=== PATIENT | female | born 1960 ===

== ENCOUNTER 2017-11-02 09:41 | Inpatient (IN) | payer BC, OTHER ==
[2017-11-02 10:00] VITALS: BMI 34.7
[2017-11-02] MEDS ORDERED: Sodium Chloride 0.9% 1,000 ML IV STA ×2 (10:26→17:42)
[2017-11-02 10:45] LABS: BASO % 0.4 % (0.0-2.0); EOS # 0.2 K/uL (0.0-0.7); EOS % 3.1 % (0.0-4.0); HEMOGLOBIN 13.8 g/dL (12.0-16.0); LYMPH # 1.5 K/uL (1.0-4.3); LYMPH % 22.7 % (20.0-40.0); MEAN CELL VOLUME 81.7 fl (81.0-99.0); MEAN CORPUSCULAR HEMOGLOBIN 27.8 pg (27.0-31.0); MEAN PLATELET VOLUME 8.5 fl (7.2-11.7); MONO # 0.7 K/uL (0.0-0.8); MONO % 10.5 % (0.0-10.0); NEUT # 4.2 K/uL (1.8-7.0); NEUT % 63.3 % (50.0-75.0); NRBC % 0.2 % (0.0-0.0); RBC 4.97 Mil/uL (3.80-5.20); RED CELL DISTRIBUTION WIDTH 13.2 % (11.5-14.5); WHITE BLOOD COUNT 6.6 K/uL (4.8-10.8)
[2017-11-02 10:59] LABS: ALB/GLOB RATIO 1.3 (1.0-2.1); ALBUMIN 4.1 g/dL (3.5-5.0); ALT/SGPT 47 U/L (9-52); AST/SGOT 27 U/L (14-36); BLOOD UREA NITROGEN 18 mg/dl (7-17); CALCIUM 8.7 mg/dL (8.4-10.2); GFR AFRICAN-AMERICAN > 60; GFR NON-AFRICAN AMERICAN > 60; LIPASE 46 U/L (23-300)
--- NOTE | 2017-11-02 11:22 | ED PDOC ---
HPI: Abdomen Time Seen by Provider: 11/02/17 10:00 Chief Complaint (Nursing): Abdominal Pain Chief Complaint (Provider): Abdominal Pain History Per: Patient History/Exam Limitations: no limitations Onset/Duration Of Symptoms: Days (x 1) Current Symptoms Are (Timing): Still Present Additional Complaint(s): 56 year old female with history of diverticulitis presents to the ED complaining of vomiting and diarrhea. Also complains of associated midepigastric pain w vomiting and diarrhea. Denies fever. PMD: Dr. Lyndon Hdz Past Medical History Reviewed: Historical Data, Nursing Documentation, Vital Signs Vital Signs: Last Vital Signs Temp 98.3 F 11/02/17 10:00 Pulse 74 11/02/17 10:00 Resp 17 11/02/17 10:00 BP 121/73 11/02/17 10:00 Pulse Ox 95 11/02/17 18:41 - Medical History PMH: Anxiety, Back Problems, Diverticulitis, HTN Denies: HIV, Chronic Kidney Disease - Surgical History Surgical History: Cholecystectomy, Endoscopy Other surgeries: hysterectomy and cholecystectomy - Family History Family History: States: Unknown Family Hx - Social History Current smoker - smoking cessation education provided: No Alcohol: None Drugs: Denies - Home Medications Home Medications: Ambulatory Orders Medication Instructions Recorded Olmesartan [BenicarNf] 40 mg PO DAILY 01/06/17 Famotidine [Pepcid] 20 mg PO DAILY 11/02/17 - Allergies Allergies/Adverse Reactions: Allergies Allergy/AdvReac Type Severity Reaction Status Date / Time Influenza Virus Vaccines Allergy Mild RASH Verified 11/02/17 10:12 hamilton AdvReac VOMITING Verified 11/02/17 10:12 kiwi AdvReac VOMITING Verified 11/02/17 10:12 Review of Systems ROS Statement: Except As Marked, All Systems Reviewed And Found Negative Constitutional: Negative for: Fever Gastrointestinal: Positive for: Vomiting, Abdominal Pain, Diarrhea Physical Exam - Reviewed Nursing Documentation Reviewed: Yes Vital Signs Reviewed: Yes - Physical Exam Appears: Positive for: Non-toxic, No Acute Distress Head Exam: Positive for: ATRAUMATIC, NORMOCEPHALIC Skin: Positive for: Normal Color, Warm, Dry Eye Exam: Positive for: EOMI, Normal appearance, PERRL ENT: Positive for: Normal ENT Inspection Neck: Positive for: Normal, Painless ROM, Supple Cardiovascular/Chest: Positive for: Regular Rate, Rhythm. Negative for: Murmur Respiratory: Positive for: Normal Breath Sounds. Negative for: Wheezing Gastrointestinal/Abdominal: Positive for: Tenderness (slight midepigastric.). Negative for: Other (LLQ tenderness) Back: Positive for: Normal Inspection Extremity: Positive for: Normal ROM Neurologic/Psych: Positive for: Alert, Oriented - Laboratory Results Result Diagrams: 11/02/17 10:40 11/02/17 10:40 - ECG O2 Sat by Pulse Oximetry: 95 (RA) Pulse Ox Interpretation: Normal Medical Decision Making Medical Decision Making: time: 10:23 Impression: abd pain -viral gastroenteritis vs gastritis Initial Plan: --Pepcid 20 mg IVP --Normal Saline IV --Zofran Inj 4 mg IV --CBC --CMP --Lipase Time: 12:45 --Patient is still experiencing pain and will get a Ct scan to rule out diverticulitis ____ Time: 1649 --CT ABD/pelvis FINDINGS: LOWER THORAX: Unremarkable. LIVER: Hepatomegaly, hepatic steatosis. GALLBLADDER AND BILE DUCTS: Status post cholecystectomy. No abnormality is seen in the gallbladder fossa. PANCREAS: Unremarkable. No gross lesion or ductal dilatation. SPLEEN: Mild splenomegaly. ADRENALS: Unremarkable. No mass. KIDNEYS AND URETERS: Unremarkable. No hydronephrosis. No solid mass. VASCULATURE: Unremarkable. No aortic aneurysm. BOWEL: Disproportionate dilatation of proximal and mid small bowel relative to distal small bowel and colon suggestive earlier incomplete obstruction. Dilated loops of small bowel throughout the left hero abdomen and pelvis as well as the right hemipelvis. Diverticulosis without an acute inflammatory component or other associated pathologic process. APPENDIX: Normal appendix. PERITONEUM: Unremarkable. No free fluid. No free air. LYMPH NODES: Unremarkable. No enlarged lymph nodes. BLADDER: Unremarkable. REPRODUCTIVE: Prior hysterectomy BONES: No acute fracture. OTHER FINDINGS: None. IMPRESSION: Dilated proximal mid small bowel suggest early or incomplete small bowel obstruction. No evidence of an acute inflammatory process in the small bowel or colon. Unremarkable appendix. ___ Time: 1743 --Patient made aware of results. --Dr. Hdz accepted patient (pcp) --Patient is requesting to to have Dr Lieberman of surgery be consult- who is made aware of case. Scribe Attestation: Documented by Emma Saldivar, acting as a scribe for Rojas Sarabia MD Provider Scribe Attestation: All medical record entries made by the Scribe were at my direction and personally dictated by me. I have reviewed the chart and agree that the record accurately reflects my personal performance of the history, physical exam, medical decision making, and the department course for this patient. I have also personally directed, reviewed, and agree with the discharge instructions and disposition. Disposition - Clinical Impression Clinical Impression: Small bowel obstruction - Patient ED Disposition Is Patient to be Admitted: Yes - Disposition Disposition Time: 14:00 Condition: STABLE
[2017-11-02] MEDS ORDERED: Iohexol 240 (50 ml) PO ONE (12:50)
[2017-11-02] MEDS ORDERED: Iohexol 300 100 ML IJ ONE (16:07)
[2017-11-02] MEDS ORDERED: Sodium Chloride 0.9% 50 ML IV ONE (16:07)
--- NOTE | 2017-11-02 16:51 | CT ---
PROCEDURE: CT Abdomen and Pelvis with contrast HISTORY: Abdominal pain, diverticulitis suspected clinically COMPARISON: 01/06/2017 TECHNIQUE: Contrast dose: 95 cc Omnipaque 300 Radiation dose: Total exam DLP = 1184.53. MGy-cm. This CT exam was performed using one or more of the following dose reduction techniques: Automated exposure control, adjustment of the mA and/or kV according to patient size, and/or use of iterative reconstruction technique. FINDINGS: LOWER THORAX: Unremarkable. LIVER: Hepatomegaly, hepatic steatosis. GALLBLADDER AND BILE DUCTS: Status post cholecystectomy. No abnormality is seen in the gallbladder fossa. PANCREAS: Unremarkable. No gross lesion or ductal dilatation. SPLEEN: Mild splenomegaly. ADRENALS: Unremarkable. No mass. KIDNEYS AND URETERS: Unremarkable. No hydronephrosis. No solid mass. VASCULATURE: Unremarkable. No aortic aneurysm. BOWEL: Disproportionate dilatation of proximal and mid small bowel relative to distal small bowel and colon suggestive earlier incomplete obstruction. Dilated loops of small bowel throughout the left hero abdomen and pelvis as well as the right hemipelvis. Diverticulosis without an acute inflammatory component or other associated pathologic process. APPENDIX: Normal appendix. PERITONEUM: Unremarkable. No free fluid. No free air. LYMPH NODES: Unremarkable. No enlarged lymph nodes. BLADDER: Unremarkable. REPRODUCTIVE: Prior hysterectomy BONES: No acute fracture. OTHER FINDINGS: None. IMPRESSION: Dilated proximal mid small bowel suggest early or incomplete small bowel obstruction. No evidence of an acute inflammatory process in the small bowel or colon. Unremarkable appendix.
--- NOTE | 2017-11-02 19:12 | CP.PCM.CON ---
History of Present Illness - History of Present Illness History of Present Illness: General Surgery Consult Note for Dr. Lieberman Reason for consult: early vs partial SBO 56 F with PMH of HTN, diverticulitis, s/p total hysterectomy, s/p laparoscopic cholecystectomy presents to [facility] for complaint of abdominal pain, nausea/ vomiting, and diarrhea. Patient was evaluated in the ED. Patient states that symptoms began 1.5 days ago while she was sleeping. She was awoken by pain. She subsequently developed the nausea/vomiting and diarrhea. She had 1 episode of non-bloody, non-bilious vomiting. She also reports 3 episodes of non-bloody diarrhea. She had never had this in the past and reports sudden onset. She rates pain as severe. She describes pain as constant and cramping located in right side of abdomen without radiation. Denies any specific alleviating or exacerbating factors. Patient reports to having increased fiber intake recently. CT abdomen/pelvis was done and showed early vs incomplete SBO. Admits to recent constipation. Denies fever/chills, chest pain, SOB, palpitations, recent illness, sick contacts. PMH: HTN, diverticulitis Meds: Denies Allergy: flu vaccine, hamilton, kiwi PSH: s/p total hysterectomy, s/p laparoscopic cholecystectomy, multiple D&Cs FH: non-contributory Social: denies tobacco/illicit drug use, social Etoh on rare occasions, works in OR at [facility] [employer] Review of Systems - Review of Systems All systems: reviewed and no additional remarkable complaints except (as per HPI ) Past Patient History - Infectious Disease Hx of Infectious Diseases: None - Past Medical History & Family History Past Medical History?: Yes - Past Social History Alcohol: None Drugs: Denies - CARDIAC Hx Hypertension: Yes - PULMONARY Hx Respiratory Disorders: No - NEUROLOGICAL Hx Neurological Disorder: No - HEENT Hx HEENT Problems: No - RENAL Hx Chronic Kidney Disease: No - ENDOCRINE/METABOLIC Hx Endocrine Disorders: No - HEMATOLOGICAL/ONCOLOGICAL Hx Human Immunodeficiency Virus (HIV): No - INTEGUMENTARY Hx Dermatological Problems: No - MUSCULOSKELETAL/RHEUMATOLOGICAL Hx Back Pain: Yes Hx Falls: No - GASTROINTESTINAL Hx Diverticulitis: Yes - GENITOURINARY/GYNECOLOGICAL Hx Genitourinary Disorders: No - PSYCHIATRIC Hx Anxiety: Yes - SURGICAL HISTORY Hx Cholecystectomy: Yes - ANESTHESIA Hx Anesthesia: Yes Hx Anesthesia Reactions: No Hx Malignant Hyperthermia: No Meds Allergies/Adverse Reactions: Allergies Allergy/AdvReac Type Severity Reaction Status Date / Time Influenza Virus Vaccines Allergy Mild RASH Verified 11/02/17 10:12 hamilton AdvReac VOMITING Verified 11/02/17 10:12 kiwi AdvReac VOMITING Verified 11/02/17 10:12 - Medications Medications: Current Medications Sodium Chloride (Sodium Chloride 0.9%) 1,000 mls @ 250 mls/hr IV .Q4H STA Stop: 11/02/17 21:41 Last Admin: 11/02/17 17:57 Dose: 250 mls/hr Physical Exam - Constitutional Appears: No Acute Distress - Head Exam Head Exam: ATRAUMATIC, NORMOCEPHALIC - Eye Exam Eye Exam: EOMI, Normal appearance - ENT Exam ENT Exam: Mucous Membranes Moist - Neck Exam Neck exam: Positive for: Full Rom - Respiratory Exam Respiratory Exam: NORMAL BREATHING PATTERN - Cardiovascular Exam Cardiovascular Exam: REGULAR RHYTHM - GI/Abdominal Exam GI & Abdominal Exam: Distended, Guarding (voluntary on deep palpation), Normal Bowel Sounds, Soft, Tenderness (right sided). absent: Firm, Hernia, Rebound, Rigid Additional comments: scars from previous laparoscopy suprapubic scar from hysterectomy - Extremities Exam Extremities exam: Positive for: normal capillary refill, pedal pulses present. Negative for: calf tenderness - Back Exam Back exam: absent: CVA tenderness (L), CVA tenderness (R) - Neurological Exam Neurological exam: Alert, CN II-XII Intact, Oriented x3 - Psychiatric Exam Psychiatric exam: Normal Affect, Normal Mood - Skin Skin Exam: Dry, Intact, Normal Color, Warm Results - Vital Signs Recent Vital Signs: Last Vital Signs Temp 98.3 F 11/02/17 10:00 Pulse 74 11/02/17 10:00 Resp 17 11/02/17 10:00 BP 121/73 11/02/17 10:00 Pulse Ox 95 11/02/17 18:41 - Labs Result Diagrams: 11/02/17 10:40 11/02/17 10:40 Labs: Laboratory Results - last 24 hr 11/02/17 11/02/17 10:40 10:40 WBC 6.6 RBC 4.97 Hgb 13.8 Hct 40.6 MCV 81.7 MCH 27.8 MCHC 34.0 RDW 13.2 Plt Count 157 MPV 8.5 Neut % (Auto) 63.3 Lymph % (Auto) 22.7 Moody % (Auto) 10.5 H Eos % (Auto) 3.1 Baso % (Auto) 0.4 Neut # 4.2 Lymph # 1.5 Moody # 0.7 Eos # 0.2 Baso # 0.0 Sodium 141 Potassium 3.8 Chloride 104 Carbon Dioxide 28 Anion Gap 13 BUN 18 H Creatinine 0.7 Est GFR ( Amer) > 60 Est GFR (Non-Af Amer) > 60 Random Glucose 104 Calcium 8.7 Total Bilirubin 0.6 AST 27 ALT 47 Alkaline Phosphatase 93 Total Protein 7.3 Albumin 4.1 Globulin 3.2 Albumin/Globulin Ratio 1.3 Lipase 46 Assessment & Plan - Assessment and Plan (Free Text) Plan: 56 F with early vs partial SBO -NPO -IV fluids -NG tube to low intermittent suction -Analgesics/Anti-emetics PRN -Serial abdominal exams -Will discuss with Dr. Mio Davidson PGY1
[2017-11-02] MEDS ORDERED: Sodium Chloride 0.9% 1,000 ML IV SCH (21:15)
[2017-11-02] MEDS: HYDROmorphone 0.5 mg/0.5 ml ISec IVP PRN (21:59)
[2017-11-02] MEDS ORDERED: Dextrose 5%/0.9% NS 1,000 ML IV SCH (22:15)
[2017-11-03] MEDS ORDERED: Pneumococcal 23-Valent Vaccine IM ONE (04:49)
[2017-11-03] MEDS: HYDROmorphone 0.5 mg/0.5 ml ISec IVP PRN ×3 (05:51→17:38)
[2017-11-03 06:41] LABS: HEMOGLOBIN 12.1 g/dL (12.0-16.0); MEAN CELL VOLUME 82.5 fl (81.0-99.0); MEAN CORPUSCULAR HEMOGLOBIN 27.4 pg (27.0-31.0); MEAN CORPUSCULAR HGB CONC 33.3 g/dL (33.0-37.0); RBC 4.39 Mil/uL (3.80-5.20); RED CELL DISTRIBUTION WIDTH 13.3 % (11.5-14.5); WHITE BLOOD COUNT 3.8 K/uL (4.8-10.8)
[2017-11-03 06:51] LABS: BLOOD UREA NITROGEN 11 mg/dl (7-17); CALCIUM 8.2 mg/dL (8.4-10.2); GFR AFRICAN-AMERICAN > 60; GFR NON-AFRICAN AMERICAN > 60
[2017-11-03] MEDS ORDERED: Benzocaine/Menthol (Cepacol) Lozenge PO PRN (09:00)
--- NOTE | 2017-11-03 10:12 | CP.PCM.PN ---
Subjective - Date & Time of Evaluation Date of Evaluation: 11/03/17 Time of Evaluation: 08:10 - Subjective Subjective: General surgery progress note for Dr. Fabian Grijalva, PGY-1 Pt S & E at bedside. Pt reports NGT discomfort, ab pain inconsequential comparatively. Slight nausea. No other complaints. NGT with 420 dark brownish green gastric output since placement. Objective - Vital Signs/Intake and Output Vital Signs (last 24 hours): Temp Pulse Resp BP Pulse Ox 98.3 F 55 L 18 115/75 92 L 11/03/17 08:00 11/03/17 08:00 11/03/17 08:00 11/03/17 08:00 11/03/17 08:00 Intake and Output: 11/03/17 11/03/17 06:59 18:59 Output Total 350 Balance -350 - Medications Medications: Current Medications Acetaminophen (Tylenol 325mg Tab) 650 mg PO Q6 PRN PRN Reason: Pain, Mild (1-3) Benzocaine/Menthol (Cepacol Sore Throat) 1 yasmany PO Q2 PRN PRN Reason: Sore Throat Hydromorphone HCl (Dilaudid) 0.5 mg IVP Q3H PRN PRN Reason: Pain, severe (8-10) Last Admin: 11/03/17 05:51 Dose: 0.5 mg Dextrose/Sodium Chloride (Dextrose 5%/0.9% Ns 1000 Ml) 1,000 mls @ 200 mls/hr IV .Q5H [facility] Stop: 11/04/17 06:57 Ondansetron HCl (Zofran Inj) 4 mg IVP Q6 PRN PRN Reason: Nausea/Vomiting Pantoprazole Sodium (Protonix Inj) 40 mg IVP DAILY [facility]IS[facility] - Labs Labs: 11/03/17 06:10 11/03/17 06:10 - Constitutional Appears: Non-toxic, No Acute Distress - Head Exam Head Exam: ATRAUMATIC, NORMAL INSPECTION, NORMOCEPHALIC Additional comments: NGT in place in L nares - Eye Exam Eye Exam: EOMI, Normal appearance - ENT Exam ENT Exam: Mucous Membranes Moist, Normal Exam - Neck Exam Neck Exam: Full ROM, Normal Inspection - Respiratory Exam Respiratory Exam: NORMAL BREATHING PATTERN - Cardiovascular Exam Cardiovascular Exam: REGULAR RHYTHM - GI/Abdominal Exam GI & Abdominal Exam: Soft. absent: Tenderness - Extremities Exam Extremities Exam: Normal Inspection - Neurological Exam Neurological Exam: Alert, Awake, CN II-XII Intact, Oriented x3 - Psychiatric Exam Psychiatric exam: Normal Affect, Normal Mood - Skin Skin Exam: Dry, Intact, Normal Color, Warm Assessment and Plan - Assessment and Plan (Free Text) Assessment: 56F w/pSBO Plan: Cont NGT Monitor output Cepacol for discomfort Cont IVF Serial ab exams CT ab with contrast to rectum Dakota ANDERSEN attending Valentine, PGY-1
--- NOTE | 2017-11-03 11:17 | RAD ---
PROCEDURE: CHEST RADIOGRAPH, 1 VIEW HISTORY: hypertension COMPARISON: 11/02/2017 FINDINGS: LUNGS: In new PLEURA: No pneumothorax or pleural fluid seen. CARDIOVASCULAR: Normal heart size. No congestive change. Nasogastric tube extends to upper abdomen. OSSEOUS STRUCTURES: No significant abnormalities. VISUALIZED UPPER ABDOMEN: Normal. OTHER FINDINGS: None. IMPRESSION: No active disease.
--- NOTE | 2017-11-03 11:17 | RAD ---
HISTORY: intestinal obstruction COMPARISON: No prior. FINDINGS: BOWEL: Normal bowel gas pattern. Oral contrast seen throughout the large intestine. There are scattered colonic diverticulae seen. No evidence of bowel obstruction. Nasogastric tube noted in left paraspinal upper abdomen. BONES: Normal. OTHER FINDINGS: None. IMPRESSION: Normal bowel gas pattern. No evidence of bowel obstruction.
[2017-11-03 11:23] LABS: BASO % 0.3 % (0.0-2.0); EOS # 0.2 K/uL (0.0-0.7); EOS % 5.2 % (0.0-4.0); HEMOGLOBIN 12.6 g/dL (12.0-16.0); LYMPH # 1.7 K/uL (1.0-4.3); LYMPH % 38.4 % (20.0-40.0); MEAN CELL VOLUME 81.7 fl (81.0-99.0); MEAN CORPUSCULAR HEMOGLOBIN 27.7 pg (27.0-31.0); MEAN CORPUSCULAR HGB CONC 33.9 g/dL (33.0-37.0); MEAN PLATELET VOLUME 8.3 fl (7.2-11.7); MONO # 0.5 K/uL (0.0-0.8); MONO % 10.1 % (0.0-10.0); NRBC % 0.2 % (0.0-0.0); RBC 4.54 Mil/uL (3.80-5.20); WHITE BLOOD COUNT 4.5 K/uL (4.8-10.8)
--- NOTE | 2017-11-03 11:59 | CARD ---
APPROVED REPORT EKG Measurement Heart [id number] <Conclusion> Sinus bradycardia Otherwise normal ECG
[2017-11-03] MEDS: Dextrose 5%/0.9% NS 1,000 ML IV SCH ×4 (12:18→22:52)
--- NOTE | 2017-11-03 13:12 | HP ---
HISTORY OF PRESENT ILLNESS: Ms. Rivera is a 56-year-old female who was admitted via the emergency room because of nausea, vomiting, abdominal pain and diarrhea for 2 days prior to presentation. She was admitted via the emergency room because of small bowel obstruction. PAST MEDICAL HISTORY: She has past medical history of hypertension, status post cholecystectomy laparoscopically. She also has a history of diverticular disease. FAMILY HISTORY: Noncontributory. SOCIAL HISTORY: She does not smoke or drink. REVIEW OF SYSTEMS: Essentially unremarkable. PHYSICAL EXAMINATION: GENERAL: The patient is alert, oriented, appears to be in some distress. She has an NG tube down her nose into the abdomen draining bilious material. VITAL SIGNS: Blood pressure 115/75, pulse of 55, respiratory rate 18 per minute, O2 sat 92% on room air. SKIN: Shows fair turgor. HEENT: Pupils equal, reactive to light and accommodation. NECK: JVP flat. LUNGS: Clear. HEART: Regular. No murmurs or gallop. BREASTS: Normal. ABDOMEN: Soft with midepigastric tenderness. There are scars of prior surgery in the abdomen. EXTREMITIES: No edema or cyanosis. GENITAL AND RECTAL: Exams deferred. CENTRAL NERVOUS SYSTEM: Grossly intact. LABORATORY DATA: WBC 3.8, hemoglobin 12.1, platelet count of 143,000. Sodium 144, potassium 3.5, BUN 11, creatinine 0.7, lipase 46. PT, INR are pending. CT scan of abdomen and pelvis is compatible with small bowel obstruction. IMPRESSION: Acute small bowel obstruction, hypertension, history of diverticular disease, history of laparoscopic cholecystectomy with history of hysterectomy with possible adhesions. PLAN: The plan is surgical and gastroenterology evaluation, IV hydration, keep n.p.o. for now, analgesics for pain. Lyndon Hdz MD
[2017-11-04] MEDS: HYDROmorphone 0.5 mg/0.5 ml ISec IVP PRN (02:55)
[2017-11-04] MEDS: Dextrose 5%/0.9% NS 1,000 ML IV SCH (03:00)
[2017-11-04 06:09] LABS: BLOOD UREA NITROGEN 5 mg/dl (7-17); CALCIUM 8.5 mg/dL (8.4-10.2); GFR AFRICAN-AMERICAN > 60; GFR NON-AFRICAN AMERICAN > 60
[2017-11-04 07:57] LABS: INR 1.1 (0.9-1.2); PARTIAL THROMBOPLASTIN TIME 30.6 Seconds (25.6-37.1)
[2017-11-04] MEDS ORDERED: Oxycodone/Acetaminophen 5/325 mg Tab PO PRN ×2 (08:01)
--- NOTE | 2017-11-04 08:05 | CP.PCM.PN ---
Subjective - Date & Time of Evaluation Date of Evaluation: 11/04/17 Time of Evaluation: 07:30 - Subjective Subjective: General surgery progress note for Dr. Dionne Grijalva, PGY-1 Pt S & E at bedside with attending. Pt reports flatus, no BM. Continues with ab pain. Tolerating CLD. Denies N & V , F & C. Objective - Vital Signs/Intake and Output Vital Signs (last 24 hours): Temp Pulse Resp BP Pulse Ox 97.2 F L 64 19 135/86 96 11/04/17 00:32 11/04/17 00:32 11/04/17 00:32 11/04/17 00:32 11/04/17 00:32 Intake and Output: 11/04/17 11/04/17 06:59 18:59 Intake Total 2400 Output Total 250 Balance 2150 - Medications Medications: Current Medications Acetaminophen (Tylenol 325mg Tab) 650 mg PO Q6 PRN PRN Reason: Pain, Mild (1-3) Benzocaine/Menthol (Cepacol Sore Throat) 1 yasmany PO Q2 PRN PRN Reason: Sore Throat Last Admin: 11/03/17 10:16 Dose: 1 yasmany Hydromorphone HCl (Dilaudid) 0.5 mg IVP Q3H PRN PRN Reason: Pain, severe (8-10) Last Admin: 11/04/17 02:55 Dose: 0.5 mg Lidocaine (Lidoderm) 1 ea TD DAILY [facility] Ondansetron HCl (Zofran Inj) 4 mg IVP Q6 PRN PRN Reason: Nausea/Vomiting Oxycodone/Acetaminophen (Percocet 5/325 Mg Tab) 1 tab PO Q4 PRN PRN Reason: Pain, moderate (4-7) Stop: 11/07/17 08:02 Oxycodone/Acetaminophen (Percocet 5/325 Mg Tab) 2 tab PO Q4 PRN PRN Reason: Pain, severe (8-10) Stop: 11/07/17 08:02 Pantoprazole Sodium (Protonix Inj) 40 mg IVP DAILY [facility] Last Admin: 11/03/17 10:15 Dose: 40 mg Potassium Chloride (K-Dur 20 Meq Er Tab) 20 meq PO ONCE ONE Stop: 11/04/17 08:01 - Labs Labs: 11/03/17 11:01 11/04/17 05:30 PT 12.0 Seconds (9.8-13.1) 11/04/17 05:30 INR 1.1 (0.9-1.2) 11/04/17 05:30 APTT 30.6 Seconds (25.6-37.1) 11/04/17 05:30 - Constitutional Appears: Non-toxic, No Acute Distress - Head Exam Head Exam: ATRAUMATIC, NORMAL INSPECTION, NORMOCEPHALIC - Eye Exam Eye Exam: EOMI, Normal appearance - ENT Exam ENT Exam: Mucous Membranes Moist, Normal Exam - Neck Exam Neck Exam: Full ROM, Normal Inspection - Respiratory Exam Respiratory Exam: NORMAL BREATHING PATTERN - Cardiovascular Exam Cardiovascular Exam: REGULAR RHYTHM, +S1, +S2 - GI/Abdominal Exam GI & Abdominal Exam: Guarding (lower quardrants), Soft, Tenderness (lower quardrants). absent: Distended, Firm, Rigid - Extremities Exam Extremities Exam: Normal Inspection - Neurological Exam Neurological Exam: Alert, Awake, CN II-XII Intact, Oriented x3 - Psychiatric Exam Psychiatric exam: Normal Affect, Normal Mood - Skin Skin Exam: Dry, Intact, Normal Color, Warm Assessment and Plan - Assessment and Plan (Free Text) Assessment: 56F w/pSBO-resolving Plan: Cont CLD K 3.3 - replaced Cont pain meds- changed to PO Cont anti-emetic FU AM labs DW attending Valentine, PG-1
[2017-11-04] MEDS ORDERED: Potassium Chloride 20 mEq ER Tab PO ONE (09:00)
[2017-11-04] MEDS: Lidocaine 5% Patch TD SCH (09:23)
--- NOTE | 2017-11-04 10:58 | RAD ---
HISTORY: ng tube placement COMPARISON: 08/06/2016 FINDINGS: LUNGS: No active pulmonary disease. PLEURA: No significant pleural effusion identified, no pneumothorax apparent. CARDIOVASCULAR: Normal heart size. NG tube extends to upper abdomen. OSSEOUS STRUCTURES: No significant abnormalities. VISUALIZED UPPER ABDOMEN: Normal. OTHER FINDINGS: None. IMPRESSION: No active disease.
--- NOTE | 2017-11-04 13:13 | CP.PCM.PN ---
Subjective - Date & Time of Evaluation Date of Evaluation: 11/04/17 Time of Evaluation: 13:13 - Subjective Subjective: NGT REMOVED LESS ABDOMINAL PAINS MOVED BOWELS TOLERATING CLEAR LIQUIDS Objective - Vital Signs/Intake and Output Vital Signs (last 24 hours): Temp Pulse Resp BP Pulse Ox 97.7 F 52 L 20 130/66 96 11/04/17 08:29 11/04/17 08:29 11/04/17 08:29 11/04/17 08:29 11/04/17 08:29 Intake and Output: 11/04/17 11/04/17 06:59 18:59 Intake Total 2400 Output Total 250 Balance 2150 - Medications Medications: Current Medications Acetaminophen (Tylenol 325mg Tab) 650 mg PO Q6 PRN PRN Reason: Pain, Mild (1-3) Benzocaine/Menthol (Cepacol Sore Throat) 1 yasmany PO Q2 PRN PRN Reason: Sore Throat Last Admin: 11/03/17 10:16 Dose: 1 yasmany Potassium Chloride/Dextrose/Sod Cl (Potassium Chl 20 Meq In D5-Ns) 1,000 mls @ 100 mls/hr IV .Q10H [facility] Stop: 11/05/17 13:10 Lidocaine (Lidoderm) 1 ea TD DAILY [facility] Last Admin: 11/04/17 09:23 Dose: 1 ea Ondansetron HCl (Zofran Inj) 4 mg IVP Q6 PRN PRN Reason: Nausea/Vomiting Oxycodone/Acetaminophen (Percocet 5/325 Mg Tab) 1 tab PO Q4 PRN PRN Reason: Pain, moderate (4-7) Stop: 11/07/17 08:02 Oxycodone/Acetaminophen (Percocet 5/325 Mg Tab) 2 tab PO Q4 PRN PRN Reason: Pain, severe (8-10) Stop: 11/07/17 08:02 Pantoprazole Sodium (Protonix Inj) 40 mg IVP DAILY [facility] Last Admin: 11/04/17 09:24 Dose: 40 mg - Labs Labs: 11/03/17 11:01 11/04/17 05:30 PT 12.0 Seconds (9.8-13.1) 11/04/17 05:30 INR 1.1 (0.9-1.2) 11/04/17 05:30 APTT 30.6 Seconds (25.6-37.1) 11/04/17 05:30 - Constitutional Appears: In Acute Distress - Head Exam Head Exam: ATRAUMATIC, NORMAL INSPECTION, NORMOCEPHALIC - Eye Exam Eye Exam: EOMI, Normal appearance, PERRL Pupil Exam: NORMAL ACCOMODATION, PERRL - ENT Exam ENT Exam: Mucous Membranes Moist, Normal Exam - Neck Exam Neck Exam: Full ROM, Normal Inspection. absent: Lymphadenopathy - Respiratory Exam Respiratory Exam: Clear to Ausculation Bilateral, NORMAL BREATHING PATTERN - Cardiovascular Exam Cardiovascular Exam: REGULAR RHYTHM, +S1, +S2. absent: Murmur - GI/Abdominal Exam GI & Abdominal Exam: Soft, Normal Bowel Sounds. absent: Tenderness - Rectal Exam Rectal Exam: NORMAL INSPECTION - Extremities Exam Extremities Exam: Full ROM, Normal Capillary Refill, Normal Inspection. absent : Joint Swelling, Pedal Edema - Back Exam Back Exam: NORMAL INSPECTION - Neurological Exam Neurological Exam: Alert, Awake, CN II-XII Intact, Normal Gait, Oriented x3 - Psychiatric Exam Psychiatric exam: Normal Affect, Normal Mood - Skin Skin Exam: Dry, Intact, Normal Color, Warm Assessment and Plan - Assessment and Plan (Free Text) Assessment: INTESTINAL OBSTRUCTION IMPROVED HYPOKALEMIA Plan: SUPPLEMENT K ADVANCE DIET IN AM D/C IN AM IF STABLE
[2017-11-04] MEDS: Potassium Chl 20 mEq in D5-NS 1,000 ML IV SCH (15:56)
[2017-11-05] MEDS: Potassium Chl 20 mEq in D5-NS 1,000 ML IV SCH ×2 (00:53→09:57)
[2017-11-05 08:13] LABS: HEMOGLOBIN 13.4 g/dL (12.0-16.0); MEAN CORPUSCULAR HEMOGLOBIN 27.9 pg (27.0-31.0); MEAN CORPUSCULAR HGB CONC 34.5 g/dL (33.0-37.0); RBC 4.82 Mil/uL (3.80-5.20); RED CELL DISTRIBUTION WIDTH 13.1 % (11.5-14.5); WHITE BLOOD COUNT 4.7 K/uL (4.8-10.8)
[2017-11-05 08:16] LABS: ALB/GLOB RATIO 1.2 (1.0-2.1); ALBUMIN 3.9 g/dL (3.5-5.0); ALT/SGPT 104 U/L (9-52); AST/SGOT 57 U/L (14-36); BLOOD UREA NITROGEN 5 mg/dl (7-17); CALCIUM 9.2 mg/dL (8.4-10.2); GFR AFRICAN-AMERICAN > 60; GFR NON-AFRICAN AMERICAN > 60
[2017-11-05 08:45] VITALS: BP 124/82; PULSE 55; RESP 20; TEMP 98; O2SAT 98
[2017-11-05] MEDS: Lidocaine 5% Patch TD SCH (09:51)
--- NOTE | 2017-11-05 10:01 | CP.PCM.PN ---
Subjective - Date & Time of Evaluation Date of Evaluation: 11/05/17 Time of Evaluation: 09:10 - Subjective Subjective: General Surgery Dr. Lieberman Pt S&E @bedside. NAEO. Pt has no complaints. Requesting more solid food. (+)BM/ Flatus. tolerating CLD. Objective - Vital Signs/Intake and Output Vital Signs (last 24 hours): Temp Pulse Resp BP Pulse Ox 98.0 F 55 L 20 124/82 98 11/05/17 08:44 11/05/17 08:44 11/05/17 08:44 11/05/17 08:44 11/05/17 08:44 Intake and Output: 11/05/17 11/05/17 06:59 18:59 Intake Total 1000 Balance 1000 - Medications Medications: Current Medications Acetaminophen (Tylenol 325mg Tab) 650 mg PO Q6 PRN PRN Reason: Pain, Mild (1-3) Benzocaine/Menthol (Cepacol Sore Throat) 1 yasmany PO Q2 PRN PRN Reason: Sore Throat Last Admin: 11/03/17 10:16 Dose: 1 yasmany Potassium Chloride/Dextrose/Sod Cl (Potassium Chl 20 Meq In D5-Ns) 1,000 mls @ 100 mls/hr IV .Q10H [facility] Stop: 11/05/17 13:10 Last Admin: 11/05/17 09:57 Dose: Not Given Lidocaine (Lidoderm) 1 ea TD DAILY [facility] Last Admin: 11/05/17 09:51 Dose: 1 ea Ondansetron HCl (Zofran Inj) 4 mg IVP Q6 PRN PRN Reason: Nausea/Vomiting Oxycodone/Acetaminophen (Percocet 5/325 Mg Tab) 1 tab PO Q4 PRN PRN Reason: Pain, moderate (4-7) Stop: 11/07/17 08:02 Oxycodone/Acetaminophen (Percocet 5/325 Mg Tab) 2 tab PO Q4 PRN PRN Reason: Pain, severe (8-10) Stop: 11/07/17 08:02 Pantoprazole Sodium (Protonix Inj) 40 mg IVP DAILY [facility] Last Admin: 11/05/17 09:51 Dose: 40 mg - Labs Labs: 11/05/17 05:30 11/05/17 05:30 PT 12.0 Seconds (9.8-13.1) 11/04/17 05:30 INR 1.1 (0.9-1.2) 11/04/17 05:30 APTT 30.6 Seconds (25.6-37.1) 11/04/17 05:30 - Constitutional Appears: Non-toxic, No Acute Distress - Head Exam Head Exam: NORMAL INSPECTION - Eye Exam Eye Exam: Normal appearance - ENT Exam ENT Exam: Mucous Membranes Moist - Respiratory Exam Respiratory Exam: NORMAL BREATHING PATTERN. absent: Accessory Muscle Use, Respiratory Distress - GI/Abdominal Exam GI & Abdominal Exam: Soft. absent: Distended, Firm, Guarding, Tenderness, Rebound - Extremities Exam Extremities Exam: Normal Inspection - Neurological Exam Neurological Exam: Alert, Awake, Oriented x3 - Psychiatric Exam Psychiatric exam: Normal Affect, Normal Mood - Skin Skin Exam: Dry, Intact, Normal Color, Warm Assessment and Plan - Assessment and Plan (Free Text) Assessment: 56 y/o F w/ pSBO-resolved - advance to soft diet - replace electrolytes PRN - cont pain management - cont anti-emetic - encourage OOB to chair/Amb - GI/DVT PPx Pt discussed w/ Dr. Mio Garcia DO PGY2
--- NOTE | 2017-11-05 12:03 | CP.PCM.DIS ---
Provider - Provider Date of Admission: 11/03/17 10:18 Attending physician: Lyndon Mallory MD Time Spent in preparation of Discharge (in minutes): 30 Diagnosis - Discharge Diagnosis (1) Diverticula of colon Status: Acute (2) Small bowel obstruction Status: Acute (3) Abdominal pain Status: Acute (4) Hypertension Status: Acute (5) Hypokalemia Status: Acute Hospital Course - Lab Results Lab Results: Most Recent Lab Values WBC 4.7 K/uL (4.8-10.8) L 11/05/17 05:30 RBC 4.82 Mil/uL (3.80-5.20) 11/05/17 05:30 Hgb 13.4 g/dL (12.0-16.0) 11/05/17 05:30 Hct 39.0 % (34.0-47.0) 11/05/17 05:30 MCV 81.0 fl (81.0-99.0) 11/05/17 05:30 MCH 27.9 pg (27.0-31.0) 11/05/17 05:30 MCHC 34.5 g/dL (33.0-37.0) 11/05/17 05:30 RDW 13.1 % (11.5-14.5) 11/05/17 05:30 Plt Count 168 K/uL (130-400) 11/05/17 05:30 MPV 8.3 fl (7.2-11.7) 11/03/17 11:01 Neut % (Auto) 46.0 % (50.0-75.0) L 11/03/17 11:01 Lymph % (Auto) 38.4 % (20.0-40.0) 11/03/17 11:01 [place] % (Auto) 10.1 % (0.0-10.0) H 11/03/17 11:01 Eos % (Auto) 5.2 % (0.0-4.0) H 11/03/17 11:01 Baso % (Auto) 0.3 % (0.0-2.0) 11/03/17 11:01 Neut # 2.0 K/uL (1.8-7.0) 11/03/17 11:01 Lymph # 1.7 K/uL (1.0-4.3) 11/03/17 11:01 [place] # 0.5 K/uL (0.0-0.8) 11/03/17 11:01 Eos # 0.2 K/uL (0.0-0.7) 11/03/17 11:01 Baso # 0.0 K/uL (0.0-0.2) 11/03/17 11:01 PT 12.0 Seconds (9.8-13.1) 11/04/17 05:30 INR 1.1 (0.9-1.2) 11/04/17 05:30 APTT 30.6 Seconds (25.6-37.1) 11/04/17 05:30 Sodium 144 mmol/l (132-148) 11/05/17 05:30 Potassium 3.6 MMOL/L (3.6-5.0) 11/05/17 05:30 Chloride 107 mmol/L (98-107) 11/05/17 05:30 Carbon Dioxide 28 mmol/L (22-30) 11/05/17 05:30 Anion Gap 13 (10-20) 11/05/17 05:30 BUN 5 mg/dl (7-17) L 11/05/17 05:30 Creatinine 0.6 mg/dl (0.7-1.2) L 11/05/17 05:30 Est GFR ( Amer) > 60 11/05/17 05:30 Est GFR (Non-Af Amer) > 60 11/05/17 05:30 Random Glucose 97 mg/dL (65-105) 11/05/17 05:30 Calcium 9.2 mg/dL (8.4-10.2) 11/05/17 05:30 Total Bilirubin 0.9 mg/dl (0.2-1.3) 11/05/17 05:30 AST 57 U/L (14-36) H D 11/05/17 05:30 ALT 104 U/L (9-52) H D 11/05/17 05:30 Alkaline Phosphatase 93 U/L (38-126) 11/05/17 05:30 Total Protein 7.1 G/DL (6.3-8.2) 11/05/17 05:30 Albumin 3.9 g/dL (3.5-5.0) 11/05/17 05:30 Globulin 3.2 gm/dL (2.2-3.9) 11/05/17 05:30 Albumin/Globulin Ratio 1.2 (1.0-2.1) 11/05/17 05:30 Lipase 46 U/L (23-300) 11/02/17 10:40 - Hospital Course Hospital Course: clinically improved no abdominal pains tolerating diet Discharge Exam - Head Exam Head Exam: NORMAL INSPECTION - Eye Exam Eye Exam: EOMI, Normal appearance, PERRL Pupil Exam: NORMAL ACCOMODATION, PERRL - GI/Abdominal Exam GI & Abdominal Exam: Normal Bowel Sounds - Rectal Exam Rectal Exam: NORMAL INSPECTION - Neurological Exam Neurological exam: Alert, CN II-XII Intact, Normal Gait, Oriented x3, Reflexes Normal - Psychiatric Exam Psychiatric exam: Normal Affect, Normal Mood - Skin Skin Exam: Dry, Intact, Normal Color, Warm Discharge Plan - Follow Up Plan Condition: STABLE Disposition: HOME/ ROUTINE Patient education suggested?: Yes Additional Instructions: discharge today follow up with dr mallory
== END 2017-11-05 13:33 | disposition home or self-care (01) | DRG 390 ==
LOC: H.ER 09:41 → H.ERHOLD 17:42 → H.MEDSURG1 21:03 → OBSVTOIN 11-03 10:18
PROVIDERS: ADMIT Internal Medicine Pulmonary Disease; ATTEND Internal Medicine Pulmonary Disease
PROC: 3E0234Z Introduction of Serum, Toxoid and Vaccine into Muscle, Percutaneous Approach (ICD-10-PCS; principal; 2017-11-03)
DX: K56.600 Partial intestinal obstruction, unspecified as to cause (principal); E87.6 Hypokalemia; F41.9 Anxiety disorder, unspecified; K57.30 Diverticulosis of large intestine without perforation or abscess without bleeding; Z90.49 Acquired absence of other specified parts of digestive tract; Z90.710 Acquired absence of both cervix and uterus; K59.00 Constipation, unspecified; M54.9 Dorsalgia, unspecified; I10 Essential (primary) hypertension; Z23 Encounter for immunization

== ENCOUNTER 2018-12-04 10:08 | Inpatient (IN) | payer OTHER ==
[2018-12-04 10:18] VITALS: BMI 37.1
[2018-12-04] MEDS ORDERED: Iohexol 240 (50 ml) PO ONE (11:50)
[2018-12-04] MEDS ORDERED: Sodium Chloride 0.9% 1,000 ML IV STA (11:52)
[2018-12-04 12:13] LABS: VENOUS BLOOD GAS BASE EXCESS 2.7 mmol/L (0.0-2.0); VENOUS BLOOD GAS PCO2 50 mmHg (40-60); VENOUS BLOOD GAS PO2 27 mm/Hg (30-55); VENOUS BLOOD PH 7.37 (7.32-7.43)
[2018-12-04 12:18] LABS: BASO % 0.6 % (0.0-2.0); EOS # 0.3 K/uL (0.0-0.7); EOS % 4.4 % (0.0-4.0); HEMOGLOBIN 12.7 g/dL (12.0-16.0); LYMPH # 1.7 K/uL (1.0-4.3); LYMPH % 24.2 % (20.0-40.0); MEAN CELL VOLUME 81.3 fl (81.0-99.0); MEAN CORPUSCULAR HEMOGLOBIN 27.5 pg (27.0-31.0); MEAN CORPUSCULAR HGB CONC 33.9 g/dL (33.0-37.0); MEAN PLATELET VOLUME 8.2 fl (7.2-11.7); MONO # 0.5 K/uL (0.0-0.8); MONO % 7.6 % (0.0-10.0); NEUT # 4.5 K/uL (1.8-7.0); NEUT % 63.2 % (50.0-75.0); NRBC % 0.2 % (0.0-0.0); RBC 4.61 Mil/uL (3.80-5.20); RED CELL DISTRIBUTION WIDTH 13.2 % (11.5-14.5); WHITE BLOOD COUNT 7.1 K/uL (4.8-10.8)
[2018-12-04 12:36] LABS: ALB/GLOB RATIO 1.2 (1.0-2.1); ALT/SGPT 22 U/L (9-52); AST/SGOT 25 U/L (14-36); BLOOD UREA NITROGEN 13 mg/dl (7-17); CALCIUM 9.3 mg/dL (8.4-10.2); GFR NON-AFRICAN AMERICAN > 60
--- NOTE | 2018-12-04 12:40 | ED PDOC ---
HPI: Abdomen Time Seen by Provider: 12/04/18 11:33 Chief Complaint (Nursing): Abdominal Pain Chief Complaint (Provider): Abdominal pain History Per: Patient History/Exam Limitations: no limitations Onset/Duration Of Symptoms: Days Outside of [place] travel?: No Current Symptoms Are (Timing): Still Present Location Of Pain/Discomfort: LLQ Associated Symptoms: Loss Of Appetite, Constipation (3 days ago). denies: Nausea, Vomiting Additional History Per: Patient Additional Complaint(s): 58yo female, with history of diverticulitis, adhesions (no surgical intervention), and a hysterectomy, comes to ER reporting 4 days of worsening left lower quadrant abdominal pain. She states the pain this time is worse than prior episodes and is associated with loss of appetite x 3 days. She reports feeling mildly constipated 3 days ago but was mildly relieved with use of laxatives. She otherwise denies any fever, chills, vomiting, or urinary symptoms. No additional complaints. PMD: Dr. Hdz Past Medical History Reviewed: Historical Data, Nursing Documentation, Vital Signs Vital Signs: Last Vital Signs Temp 98 F 12/04/18 10:18 Pulse 60 12/04/18 10:18 Resp 17 12/04/18 10:18 BP 108/72 12/04/18 10:18 Pulse Ox 97 12/04/18 10:18 - Medical History PMH: Anxiety, Back Problems, Diverticulitis, HTN Denies: HIV, Chronic Kidney Disease - Surgical History Surgical History: Cholecystectomy, Endoscopy - Family History Family History: States: No Known Family Hx - Social History Current smoker - smoking cessation education provided: No Alcohol: None Drugs: Denies - Home Medications Home Medications: Ambulatory Orders Medication Instructions Recorded RX: Omeprazole 40 mg PO DAILY 30 Days #30 11/05/17 capsule. Olmesartan/Hydrochlorothiazide 1 tab PO DAILY 12/04/18 [Benicar Hct 40-12.5 mg Tablet] RX: Ibuprofen [Motrin Tab] 600 mg PO Q6 PRN 12/04/18 Triamcinolone 0.1% [Triamcinolone 1 appl TOP Q12 12/04/18 0.1% Cream] - Allergies Allergies/Adverse Reactions: Allergies Allergy/AdvReac Type Severity Reaction Status Date / Time Influenza Virus Vaccines Allergy Mild RASH Verified 12/04/18 10:40 [place] AdvReac VOMITING Verified 12/04/18 10:40 kiwi AdvReac VOMITING Verified 12/04/18 10:40 Review of Systems ROS Statement: Except As Marked, All Systems Reviewed And Found Negative Constitutional: Negative for: Fever, Chills Cardiovascular: Negative for: Chest Pain Respiratory: Negative for: Shortness of Breath Gastrointestinal: Positive for: Abdominal Pain. Negative for: Nausea, Vomiting, Diarrhea Genitourinary Female: Negative for: Dysuria Physical Exam - Reviewed Nursing Documentation Reviewed: Yes Vital Signs Reviewed: Yes - Physical Exam Appears: Positive for: Non-toxic Head Exam: Positive for: ATRAUMATIC, NORMAL INSPECTION, NORMOCEPHALIC Skin: Positive for: Normal Color Eye Exam: Positive for: Normal appearance, EOMI, PERRL Neck: Positive for: Normal, Supple Cardiovascular/Chest: Positive for: Regular Rate, Rhythm Respiratory: Positive for: Normal Breath Sounds Gastrointestinal/Abdominal: Positive for: Soft, Tenderness (Diffuse tenderness, worse in LLQ). Negative for: Mass, Guarding, Rebound Back: Positive for: Normal Inspection Extremity: Positive for: Normal ROM Neurologic/Psych: Positive for: Alert, Oriented - Laboratory Results Result Diagrams: 12/05/18 06:10 12/05/18 06:10 Lab Results: pO2 27 mm/Hg (30-55) L 12/04/18 12:10 VBG pH 7.37 (7.32-7.43) 12/04/18 12:10 VBG pCO2 50 mmHg (40-60) 12/04/18 12:10 VBG HCO3 25.7 mmol/L 12/04/18 12:10 VBG Total CO2 30.4 mmol/L (22-28) H 12/04/18 12:10 VBG O2 Sat (Calc) 56.7 % (40-65) 12/04/18 12:10 VBG Base Excess 2.7 mmol/L (0.0-2.0) H 12/04/18 12:10 VBG Potassium 3.8 mmol/L (3.6-5.2) 12/04/18 12:10 Sodium 140.0 mmol/L (132-148) 12/04/18 12:10 Chloride 109.0 mmol/L (98-107) H 12/04/18 12:10 Glucose 91 mg/dL (65-105) 12/04/18 12:10 Lactate 0.8 mmol/L (0.7-2.1) 12/04/18 12:10 FiO2 21.0 % 12/04/18 12:10 Total Bilirubin 0.6 mg/dl (0.2-1.3) 12/04/18 12:02 AST 25 U/L (14-36) 12/04/18 12:02 ALT 22 U/L (9-52) 12/04/18 12:02 Alkaline Phosphatase 94 U/L (38-126) 12/04/18 12:02 Total Protein 7.4 G/DL (6.3-8.2) 12/04/18 12:02 Albumin 4.0 g/dL (3.5-5.0) 12/04/18 12:02 Globulin 3.4 gm/dL (2.2-3.9) 12/04/18 12:02 Albumin/Globulin Ratio 1.2 (1.0-2.1) 12/04/18 12:02 - ECG O2 Sat by Pulse Oximetry: 97 (RA) Pulse Ox Interpretation: Normal Medical Decision Making Medical Decision Mak[place]o female with history of diverticulitis; workup for diverticulitis Abdomen soft so low suspicion for a perforation Plan: -- Labs -- CT Abdomen/pelvis -- Morphine 2mg IV -- IV Fluids 1640 CT Abdomen/Pelvis FINDINGS: LOWER THORAX: There is a 3 mm noncalcified nodule or focal atelectasis in the left lower lobe subpleural space best seen in image 15 series 3. In addition, there is either a small hiatal hernia or prominent thickening of the distal esophagus. Clinically correlate further. LIVER: No mass or intrahepatic biliary dilatation. However, diffusely diminished diminished attenuation is appreciate compatible with hepatic steatosis once again. Borderline hepatomegaly. GALLBLADDER AND BILE DUCTS: Prior cholecystectomy reiterated. PANCREAS: Unremarkable. No gross lesion or ductal dilatation. SPLEEN: Borderline splenomegaly up to 13.1 cm. ADRENALS: Unremarkable. No mass. KIDNEYS AND URETERS: Unremarkable. No hydronephrosis. No solid mass. VASCULATURE: Unremarkable. No aortic aneurysm. No aortic atherosclerotic calcification or mural plaque present. BOWEL: Thickening of the sigmoid colon is appreciated with diverticular changes again identified but in the interval, there is now poor definition of the peripheral margins of the mid sigmoid colon with prominent streaky pericolic reaction compatible with diverticulitis. Borderline diverticulitis is questioned at the proximal segment. No abscess or free intrarenal gas appreciated at this time. No obstruction. No additional mural thickening appreciated throughout the remaining colon. Small bowel appears unremarkable. APPENDIX: Normal appendix. PERITONEUM: See bowel section above. No ascites. LYMPH NODES: Unremarkable. No enlarged lymph nodes. BLADDER: Unremarkable. REPRODUCTIVE: Unremarkable. BONES: No acute fracture. OTHER FINDINGS: None. IMPRESSION: 1. Findings most compatible with mid sigmoid diverticulitis. Borderline proximal sigmoid diverticulitis. No CT evidence to suggest bowel perforation at this time. 2. Hepatic steatosis reiterated. Borderline hepatomegaly. 3. Mild splenomegaly. 4. Incidental sub cm nodule left lower lobe as discussed above. Consider follow-up CT in 12 months at low-dose CT technique demonstrate stability of this finding. 5. Interval thickened distal esophagus versus small hiatal hernia. Further clinical correlation. Recommended. Scribe Attestation: Documented by Alondra Pimentel acting as a scribe for Lacey Castro MD Provider Attestation: All medical record entries made by the Scribe were at my direction and personally dictated by me. I have reviewed the chart and agree that the record accurately reflects my personal performance of the history, physical exam, medical decision making, and the department course for this patient. I have also personally directed, reviewed, and agree with the discharge instructions and disposition. Time: 1706 -- CT shows diverticulitis. Labs unremarkable. However, patient remains in severe pain. Morphine ordered. Dr Elizondo pages for surgical consult. -- Morphine 2 mg IVP Time: 173 -- Spoke to Dr. Elizondo who requests admissions for observation and repeat labs in the morning. Cultures and Zofran ordered. Spoke to Passenger Representative. Will page patient's PMD, Dr. Hdz, for admission. -- Gastroenterology Consult Placed -- Blood Culture -- Zosyn 3.375 gm Sodium Chloride 0.9% 100 ml IVPB Scribe Attestation: Documented by Paige Marin, acting as a scribe for Lacey Castro MD. Provider Scribe Attestation: All medical record entries made by the Scribe were at my direction and personally dictated by me. I have reviewed the chart and agree that the record accurately reflects my personal performance of the history, physical exam, medical decision making, and the department course for this patient. I have also personally directed, reviewed, and agree with the discharge instructions and disposition. Disposition - Clinical Impression Clinical Impression: Diverticulitis - Patient ED Disposition Is Patient to be Admitted: Yes - Disposition Disposition Time: 17:36 Condition: FAIR
[2018-12-04 13:31] LABS: SQUAMOUS EPITHIAL 1 /hpf (0-5); URINE BILIRUBIN NEGATIVE (NEGATIVE); URINE BLOOD MODERATE (NEGATIVE); URINE CLARITY SLIGHTY-CLOUDY (Clear); URINE COLOR YELLOW (YELLOW); URINE GLUCOSE (UA) NEG (NEGATIVE); URINE LEUKOCYTE ESTERASE NEG Leu/uL (Negative); URINE PROTEIN NEGATIVE (NEGATIVE); URINE UROBILINOGEN 0.2-1.0 mg/dL (0.2-1.0)
[2018-12-04] MEDS ORDERED: Sodium Chloride 0.9% 50 ML IV ONE (14:48)
[2018-12-04] MEDS ORDERED: Iohexol 300 100 ML IJ ONE (14:48)
--- NOTE | 2018-12-04 16:13 | CT ---
Date of service: 12/04/2018 PROCEDURE: CT Abdomen and Pelvis with contrast HISTORY: diverticulitis with worsening abd pain COMPARISON: Abdomen pelvis CT with contrast 11/02/2017. TECHNIQUE: Following oral and intravenous contrast administration, a CT examination of the abdomen and pelvis was performed from the domes of the diaphragms to the symphysis pubis with reformatted datasets provided not only axial but also sagittal and coronal series. Contrast dose: Omnipaque 300, 100cc Radiation dose: Total exam DLP = 955.69 mGy-cm. This CT exam was performed using one or more of the following dose reduction techniques: Automated exposure control, adjustment of the mA and/or kV according to patient size, and/or use of iterative reconstruction technique. FINDINGS: LOWER THORAX: There is a 3 mm noncalcified nodule or focal atelectasis in the left lower lobe subpleural space best seen in image 15 series 3. In addition, there is either a small hiatal hernia or prominent thickening of the distal esophagus. Clinically correlate further. LIVER: No mass or intrahepatic biliary dilatation. However, diffusely diminished diminished attenuation is appreciate compatible with hepatic steatosis once again. Borderline hepatomegaly. GALLBLADDER AND BILE DUCTS: Prior cholecystectomy reiterated. PANCREAS: Unremarkable. No gross lesion or ductal dilatation. SPLEEN: Borderline splenomegaly up to 13.1 cm. ADRENALS: Unremarkable. No mass. KIDNEYS AND URETERS: Unremarkable. No hydronephrosis. No solid mass. VASCULATURE: Unremarkable. No aortic aneurysm. No aortic atherosclerotic calcification or mural plaque present. BOWEL: Thickening of the sigmoid colon is appreciated with diverticular changes again identified but in the interval, there is now poor definition of the peripheral margins of the mid sigmoid colon with prominent streaky pericolic reaction compatible with diverticulitis. Borderline diverticulitis is questioned at the proximal segment. No abscess or free intrarenal gas appreciated at this time. No obstruction. No additional mural thickening appreciated throughout the remaining colon. Small bowel appears unremarkable. APPENDIX: Normal appendix. PERITONEUM: See bowel section above. No ascites. LYMPH NODES: Unremarkable. No enlarged lymph nodes. BLADDER: Unremarkable. REPRODUCTIVE: Unremarkable. BONES: No acute fracture. OTHER FINDINGS: None. IMPRESSION: 1. Findings most compatible with mid sigmoid diverticulitis. Borderline proximal sigmoid diverticulitis. No CT evidence to suggest bowel perforation at this time. 2. Hepatic steatosis reiterated. Borderline hepatomegaly. 3. Mild splenomegaly. 4. Incidental sub cm nodule left lower lobe as discussed above. Consider follow-up CT in 12 months at low-dose CT technique demonstrate stability of this finding. 5. Interval thickened distal esophagus versus small hiatal hernia. Further clinical correlation. Recommended.
[2018-12-04] MEDS ORDERED: Piperacillin/Tazobact 3.375 GM in Sodium Chloride 0.9% 100 ML IVPB STA (17:33)
[2018-12-04] MEDS ORDERED: Morphine 4 MG/ML VIAL IVP STA (18:14)
--- NOTE | 2018-12-04 18:32 | CP.PCM.CON ---
<Blayne Farfan - Last Filed: 12/04/18 19:34> History of Present Illness - History of Present Illness History of Present Illness: Surgery Consult Note- Dr. Franco Reason for Consult: Acute Diverticulitis 58F pmhx significant for multiple episodes of diverticulitis in the past, small bowel obstruction resolved w/o surgical intervention presents to [facility] ED w/ LLQ abdominal pain progressively worsening over the last 3 days. Pain was at it's worst on Tuesday. Able to pass flatus, and have small pencil like BM. Took stool softners over the weekend, however did not help with the pain. Pain is similar to that in the past when had multiple episodes of acute diverticulitis. ED work up; CT scan w/ PO contrast shows inflammation of the sigmoid colon, w/ no drainable abscesses or perforation. + Colonoscopy and EGD 2 years ago PMH: HTN, Small bowel obstruction resolved w/ conservative management, multiple episodes of diverticulitis (approx 5 episodes) PSH: Hysterectomy, laparoscopic cholecystectomy, multiple D&Cs ALL: Flu vaccine, hamilton, kiwi SocialHx: denies, tobacco, etoh, recreational drug use FH: non-contributory Review of Systems - Review of Systems All systems: reviewed and no additional remarkable complaints except - Constitutional Constitutional: As Per HPI Past Patient History - Infectious Disease Hx of Infectious Diseases: None - Past Medical History & Family History Past Medical History?: Yes - Past Social History Alcohol: None Drugs: Denies - CARDIAC Hx Hypertension: Yes - PULMONARY Hx Respiratory Disorders: No - NEUROLOGICAL Hx Neurological Disorder: No - HEENT Hx HEENT Problems: No - RENAL Hx Chronic Kidney Disease: No - ENDOCRINE/METABOLIC Hx Endocrine Disorders: No - HEMATOLOGICAL/ONCOLOGICAL Hx Human Immunodeficiency Virus (HIV): No - INTEGUMENTARY Hx Dermatological Problems: No - MUSCULOSKELETAL/RHEUMATOLOGICAL Hx Back Pain: Yes Hx Falls: No - GASTROINTESTINAL Hx Diverticulitis: Yes - GENITOURINARY/GYNECOLOGICAL Hx Genitourinary Disorders: No - PSYCHIATRIC Hx Anxiety: Yes - SURGICAL HISTORY Hx Cholecystectomy: Yes - ANESTHESIA Hx Anesthesia: Yes Hx Anesthesia Reactions: No Hx Malignant Hyperthermia: No Meds Allergies/Adverse Reactions: Allergies Allergy/AdvReac Type Severity Reaction Status Date / Time Influenza Virus Vaccines Allergy Mild RASH Verified 12/04/18 10:40 hamilton AdvReac VOMITING Verified 12/04/18 10:40 kiwi AdvReac VOMITING Verified 12/04/18 10:40 - Medications Medications: Current Medications Piperacillin Sod/Tazobactam (Sod 3.375 gm/ Sodium Chloride) 100 mls @ 100 mls/hr IVPB STAT STA; Protocol Stop: 12/04/18 18:32 Physical Exam - Constitutional Appears: Non-toxic, No Acute Distress - Head Exam Head Exam: ATRAUMATIC - Eye Exam Eye Exam: EOMI. absent: Scleral icterus - ENT Exam ENT Exam: Mucous Membranes Moist - Respiratory Exam Respiratory Exam: NORMAL BREATHING PATTERN. absent: Accessory Muscle Use, Respiratory Distress - Cardiovascular Exam Cardiovascular Exam: REGULAR RHYTHM. absent: Bradycardia, Tachycardia - GI/Abdominal Exam GI & Abdominal Exam: Guarding (voluntary guarding), Soft, Tenderness (Tenderness to palpation LLQ). absent: Distended, Firm, Hernia, Mass, Rigid - Extremities Exam Extremities exam: Negative for: calf tenderness - Neurological Exam Neurological exam: Alert, Oriented x3 - Psychiatric Exam Psychiatric exam: Normal Affect - Skin Skin Exam: Intact, Warm Results - Vital Signs Recent Vital Signs: Last Vital Signs Temp 98 F 12/04/18 10:18 Pulse 60 12/04/18 10:18 Resp 17 12/04/18 10:18 BP 108/72 12/04/18 10:18 Pulse Ox 97 12/04/18 17:53 - Labs Result Diagrams: 12/04/18 12:02 12/04/18 12:02 Labs: Laboratory Results - last 24 hr 12/04/18 12/04/18 12/04/18 12:02 12:02 12:10 WBC 7.1 RBC 4.61 Hgb 12.7 Hct 37.5 MCV 81.3 MCH 27.5 MCHC 33.9 RDW 13.2 Plt Count 194 MPV 8.2 Neut % (Auto) 63.2 Lymph % (Auto) 24.2 [place] % (Auto) 7.6 Eos % (Auto) 4.4 H Baso % (Auto) 0.6 Neut # (Auto) 4.5 Lymph # (Auto) 1.7 [place] # (Auto) 0.5 Eos # (Auto) 0.3 Baso # (Auto) 0.0 pO2 27 L VBG pH 7.37 VBG pCO2 50 VBG HCO3 25.7 VBG Total CO2 30.4 H VBG O2 Sat (Calc) 56.7 VBG Base Excess 2.7 H VBG Potassium 3.8 Glucose 91 Lactate 0.8 FiO2 21.0 Sodium 144 140.0 Potassium 4.0 Chloride 103 109.0 H Carbon Dioxide 27 Anion Gap 18 BUN 13 Creatinine 0.8 Est GFR ( Amer) > 60 Est GFR (Non-Af Amer) > 60 Random Glucose 96 Calcium 9.3 Total Bilirubin 0.6 AST 25 ALT 22 Alkaline Phosphatase 94 Total Protein 7.4 Albumin 4.0 Globulin 3.4 Albumin/Globulin Ratio 1.2 Venous Blood Potassium 3.8 Urine Color Urine Clarity Urine pH Ur Specific [place] Urine Protein Urine Glucose (UA) Urine Ketones Urine Blood Urine Nitrate Urine Bilirubin Urine Urobilinogen Ur Leukocyte Esterase Urine RBC (Auto) Urine Microscopic WBC Ur Squamous Epith Cells 12/04/18 12:35 WBC RBC Hgb Hct MCV MCH MCHC RDW Plt Count MPV Neut % (Auto) Lymph % (Auto) [place] % (Auto) Eos % (Auto) Baso % (Auto) Neut # (Auto) Lymph # (Auto) [place] # (Auto) Eos # (Auto) Baso # (Auto) pO2 VBG pH VBG pCO2 VBG HCO3 VBG Total CO2 VBG O2 Sat (Calc) VBG Base Excess VBG Potassium Glucose Lactate FiO2 Sodium Potassium Chloride Carbon Dioxide Anion Gap BUN Creatinine Est GFR ( Amer) Est GFR (Non-Af Amer) Random Glucose Calcium Total Bilirubin AST ALT Alkaline Phosphatase Total Protein Albumin Globulin Albumin/Globulin Ratio Venous Blood Potassium Urine Color Yellow Urine Clarity Slighty-cloudy Urine pH 6.0 Ur Specific [place] 1.021 Urine Protein Negative Urine Glucose (UA) Neg Urine Ketones Negative Urine Blood Moderate Urine Nitrate Negative Urine Bilirubin Negative Urine Urobilinogen 0.2-1.0 Ur Leukocyte Esterase Neg Urine RBC (Auto) 1 Urine Microscopic WBC 2 Ur Squamous Epith Cells 1 Assessment & Plan - Assessment and Plan (Free Text) Assessment: 58F w/ acute recurrent sigmoid diverticulitis resembles Hinchey classification type I Plan: - bowel rest - IVF/Abx w/ Zosyn - pain control and anti-emetic PRN - serial abd exams - will continue to monitor while patient is in house - d/w surgical attending PGY2 <Luis Alberto Franco - Last Filed: 12/04/18 19:48> History of Present Illness - History of Present Illness History of Present Illness: Patient was seen and examined at the bedside. Agree with resident's note above. Meds - Medications Medications: Current Medications Lactated Ringer's (Lactated Ringer's) 1,000 mls @ 125 mls/hr IV .Q8H CHARISSE Lactated Ringer's (Lactated Ringer's) 1,000 mls @ 999 mls/hr IV .Q1H1M CHARISSE Piperacillin Sod/Tazobactam (Sod 3.375 gm/ Sodium Chloride) 100 mls @ 100 mls/hr IVPB Q6 CHARISSE; Protocol Physical Exam - GI/Abdominal Exam Additional comments: soft, tender in the lower abdomen more in the LLQ, ND, BS+, no rebound, well healed scars from prior surgeries Results - Vital Signs Recent Vital Signs: Last Vital Signs Temp 98.8 F 12/04/18 18:36 Pulse 58 L 12/04/18 18:36 Resp 18 12/04/18 18:36 BP 139/76 12/04/18 18:36 Pulse Ox 98 12/04/18 18:28 - Labs Result Diagrams: 12/04/18 12:02 12/04/18 12:02 Labs: Laboratory Results - last 24 hr 12/04/18 12/04/18 12/04/18 12:02 12:02 12:10 WBC 7.1 RBC 4.61 Hgb 12.7 Hct 37.5 MCV 81.3 MCH 27.5 MCHC 33.9 RDW 13.2 Plt Count 194 MPV 8.2 Neut % (Auto) 63.2 Lymph % (Auto) 24.2 [place] % (Auto) 7.6 Eos % (Auto) 4.4 H Baso % (Auto) 0.6 Neut # (Auto) 4.5 Lymph # (Auto) 1.7 [place] # (Auto) 0.5 Eos # (Auto) 0.3 Baso # (Auto) 0.0 pO2 27 L VBG pH 7.37 VBG pCO2 50 VBG HCO3 25.7 VBG Total CO2 30.4 H VBG O2 Sat (Calc) 56.7 VBG Base Excess 2.7 H VBG Potassium 3.8 Glucose 91 Lactate 0.8 FiO2 21.0 Sodium 144 140.0 Potassium 4.0 Chloride 103 109.0 H Carbon Dioxide 27 Anion Gap 18 BUN 13 Creatinine 0.8 Est GFR ( Amer) > 60 Est GFR (Non-Af Amer) > 60 Random Glucose 96 Calcium 9.3 Total Bilirubin 0.6 AST 25 ALT 22 Alkaline Phosphatase 94 Total Protein 7.4 Albumin 4.0 Globulin 3.4 Albumin/Globulin Ratio 1.2 Venous Blood Potassium 3.8 Urine Color Urine Clarity Urine pH Ur Specific [place] Urine Protein Urine Glucose (UA) Urine Ketones Urine Blood Urine Nitrate Urine Bilirubin Urine Urobilinogen Ur Leukocyte Esterase Urine RBC (Auto) Urine Microscopic WBC Ur Squamous Epith Cells 12/04/18 12:35 WBC RBC Hgb Hct MCV MCH MCHC RDW Plt Count MPV Neut % (Auto) Lymph % (Auto) [place] % (Auto) Eos % (Auto) Baso % (Auto) Neut # (Auto) Lymph # (Auto) [place] # (Auto) Eos # (Auto) Baso # (Auto) pO2 VBG pH VBG pCO2 VBG HCO3 VBG Total CO2 VBG O2 Sat (Calc) VBG Base Excess VBG Potassium Glucose Lactate FiO2 Sodium Potassium Chloride Carbon Dioxide Anion Gap BUN Creatinine Est GFR ( Amer) Est GFR (Non-Af Amer) Random Glucose Calcium Total Bilirubin AST ALT Alkaline Phosphatase Total Protein Albumin Globulin Albumin/Globulin Ratio Venous Blood Potassium Urine Color Yellow Urine Clarity Slighty-cloudy Urine pH 6.0 Ur Specific [place] 1.021 Urine Protein Negative Urine Glucose (UA) Neg Urine Ketones Negative Urine Blood Moderate Urine Nitrate Negative Urine Bilirubin Negative Urine Urobilinogen 0.2-1.0 Ur Leukocyte Esterase Neg Urine RBC (Auto) 1 Urine Microscopic WBC 2 Ur Squamous Epith Cells 1 - Imaging and Cardiology CT scan - abdomen Status: Image reviewed by me, Report reviewed by me Assessment & Plan - Assessment and Plan (Free Text) Assessment: 58 y.o. female with diverticulitis of the sigmoid colon Plan: - Keep NPO - IV fluids - 1L bolus - Pain control - Continue Zosyn - repeat labs in am - Will follow
[2018-12-04] MEDS ORDERED: Lactated Ringer's 1,000 ML IV SCH (19:45)
[2018-12-04] MEDS: Lactated Ringer's 1,000 ML IV SCH (19:52)
[2018-12-04] MEDS: Piperacillin/Tazobact 3.375 GM in Sodium Chloride 0.9% 100 ML IVPB SCH (21:28)
[2018-12-04] MEDS: metroNIDAZOLE 500mg/100ml NS 100 ML IVPB SCH (21:30)
[2018-12-04] MEDS: Ciprofloxacin 400mg/200ml D5W 400 MG/200 ML BAG IVPB SCH (22:00)
[2018-12-05] MEDS: metroNIDAZOLE 500mg/100ml NS 100 ML IVPB SCH ×3 (01:05→18:39)
[2018-12-05] MEDS: Piperacillin/Tazobact 3.375 GM in Sodium Chloride 0.9% 100 ML IVPB SCH ×4 (04:14→22:11)
[2018-12-05] MEDS: Lactated Ringer's 1,000 ML IV SCH ×3 (04:18→20:00)
[2018-12-05 06:32] LABS: BASO % 0.7 % (0.0-2.0); EOS # 0.2 K/uL (0.0-0.7); EOS % 4.4 % (0.0-4.0); HEMOGLOBIN 12.3 g/dL (12.0-16.0); LYMPH # 1.7 K/uL (1.0-4.3); LYMPH % 31.8 % (20.0-40.0); MEAN CELL VOLUME 82.1 fl (81.0-99.0); MEAN CORPUSCULAR HGB CONC 34.1 g/dL (33.0-37.0); MEAN PLATELET VOLUME 8.5 fl (7.2-11.7); MONO # 0.4 K/uL (0.0-0.8); MONO % 8.2 % (0.0-10.0); NEUT # 2.9 K/uL (1.8-7.0); NEUT % 54.9 % (50.0-75.0); RBC 4.4 Mil/uL (3.80-5.20); WHITE BLOOD COUNT 5.4 K/uL (4.8-10.8)
[2018-12-05 06:49] LABS: BLOOD UREA NITROGEN 13 mg/dl (7-17); CALCIUM 8.8 mg/dL (8.4-10.2); GFR NON-AFRICAN AMERICAN > 60
--- NOTE | 2018-12-05 08:13 | CP.PCM.PN ---
<Basia Gross - Last Filed: 12/05/18 08:11> Subjective - Date & Time of Evaluation Date of Evaluation: 12/05/18 Time of Evaluation: 08:11 - Subjective Subjective: Surgery: Dr. Quijano Patient with same pain as yesterday in the abdomen on the left side but not worse. She does report nausea and 1x episode of nonbloody nonbilious vomiting. She denies f/c. Objective - Vital Signs/Intake and Output Vital Signs (last 24 hours): Temp Pulse Resp BP Pulse Ox 98.6 F 61 18 116/72 95 12/05/18 05:45 12/05/18 05:45 12/05/18 05:45 12/05/18 05:45 12/05/18 05:45 - Medications Medications: Current Medications Acetaminophen (Tylenol 325mg Tab) 650 mg PO Q4 PRN PRN Reason: Pain, Mild (1-3) Acetaminophen (Tylenol 325mg Tab) 650 mg PO Q4 PRN PRN Reason: Fever >100.4 F Hydromorphone HCl (Dilaudid) 1 mg IVP Q4 PRN PRN Reason: Pain, moderate (4-7) Last Admin: 12/05/18 02:48 Dose: 1 mg Lactated Ringer's (Lactated Ringer's) 1,000 mls @ 125 mls/hr IV .Q8H CHARISSE Last Admin: 12/05/18 04:18 Dose: Not Given Lactated Ringer's (Lactated Ringer's) 1,000 mls @ 999 mls/hr IV .Q1H1M CHARISSE Piperacillin Sod/Tazobactam (Sod 3.375 gm/ Sodium Chloride) 100 mls @ 100 mls/hr IVPB Q6 CHARISSE; Protocol Last Admin: 12/05/18 04:14 Dose: 100 mls/hr Metronidazole (Flagyl 500mg/100ml Ns) 100 mls @ 100 mls/hr IVPB Q8 CHARISSE; Protocol Last Admin: 12/05/18 01:05 Dose: 100 mls/hr Ciprofloxacin (Cipro 400mg/200ml Dsw) 400 mg in 200 mls @ 200 mls/hr IVPB Q12 CHARISSE; Protocol Last Admin: 12/04/18 22:00 Dose: 200 mls/hr Ondansetron HCl (Zofran Inj) 4 mg IVP Q6 PRN PRN Reason: Nausea/Vomiting Last Admin: 12/05/18 05:42 Dose: 4 mg - Labs Labs: 12/05/18 06:10 12/05/18 06:10 - Constitutional Appears: Non-toxic, No Acute Distress - Head Exam Head Exam: ATRAUMATIC, NORMOCEPHALIC - Eye Exam Eye Exam: EOMI, Normal appearance - ENT Exam ENT Exam: Mucous Membranes Moist - Respiratory Exam Respiratory Exam: NORMAL BREATHING PATTERN. absent: Respiratory Distress - Cardiovascular Exam Cardiovascular Exam: REGULAR RHYTHM. absent: Tachycardia - GI/Abdominal Exam GI & Abdominal Exam: Soft, Tenderness (LLQ, nonperitoneal ). absent: Distended, Guarding, Rigid, Rebound - Rectal Exam Rectal Exam: Deferred - Neurological Exam Neurological Exam: Alert, Awake, Oriented x3 - Psychiatric Exam Psychiatric exam: Normal Affect, Normal Mood - Skin Skin Exam: Dry, Warm Assessment and Plan - Assessment and Plan (Free Text) Assessment: 58 y/o female w/ recurrent sigmoid diverticulitis Plan: -IVF -NPO until pain improves -IV abx -GI eval -will need resolution of diverticulitis and colonoscopy, if not one recent, prior to elective surgical intervention -will follow -further recs per attending AKWhite PGY4 <Jose Jama - Last Filed: 12/05/18 09:08> Objective - Vital Signs/Intake and Output Vital Signs (last 24 hours): Temp Pulse Resp BP Pulse Ox 98.8 F 57 L 20 109/66 93 L 12/05/18 08:18 12/05/18 08:18 12/05/18 08:18 12/05/18 08:18 12/05/18 08:18 - Medications Medications: Current Medications Acetaminophen (Tylenol 325mg Tab) 650 mg PO Q4 PRN PRN Reason: Pain, Mild (1-3) Acetaminophen (Tylenol 325mg Tab) 650 mg PO Q4 PRN PRN Reason: Fever >100.4 F Hydromorphone HCl (Dilaudid) 1 mg IVP Q4 PRN PRN Reason: Pain, moderate (4-7) Last Admin: 12/05/18 02:48 Dose: 1 mg Lactated Ringer's (Lactated Ringer's) 1,000 mls @ 125 mls/hr IV .Q8H CHARISSE Last Admin: 12/05/18 04:18 Dose: Not Given Lactated Ringer's (Lactated Ringer's) 1,000 mls @ 999 mls/hr IV .Q1H1M CHARISSE Piperacillin Sod/Tazobactam (Sod 3.375 gm/ Sodium Chloride) 100 mls @ 100 mls/hr IVPB Q6 CHARISSE; Protocol Last Admin: 12/05/18 04:14 Dose: 100 mls/hr Metronidazole (Flagyl 500mg/100ml Ns) 100 mls @ 100 mls/hr IVPB Q8 CHARISSE; Protocol Last Admin: 12/05/18 01:05 Dose: 100 mls/hr Ciprofloxacin (Cipro 400mg/200ml Dsw) 400 mg in 200 mls @ 200 mls/hr IVPB Q12 CHARISSE; Protocol Last Admin: 12/04/18 22:00 Dose: 200 mls/hr Ondansetron HCl (Zofran Inj) 4 mg IVP Q4 CHARISSE Pantoprazole Sodium (Protonix Inj) 40 mg IVP DAILY CHARISSE - Labs Labs: 12/05/18 06:10 12/05/18 06:10 Assessment and Plan - Assessment and Plan (Free Text) Plan: seen at bedside, resting comfortably. Pt remains NPO and continues to report LLQ pain about the same since admission. Deneis any nausea, vomiting, fever, or BM. gen: awake, alert, NAD no acute respiratory distress abd: soft, obese, ND, +LLQ tenderness to moderate palpation, no peritoneal signs 58yo F with acute diverticulitis -prn pain control -IVF -cont IV abx -pt continues to have LLQ pain will continue NPO until pts symptoms improve
[2018-12-05] MEDS: Ciprofloxacin 400mg/200ml D5W 400 MG/200 ML BAG IVPB SCH ×2 (09:27→20:46)
--- NOTE | 2018-12-05 14:33 | HP ---
HISTORY OF PRESENT ILLNESS: Ms. Rivera is a 58-year-old female who was admitted via the emergency room because of left lower quadrant abdominal pain, nausea, vomiting, no diarrhea. She indicates that she had been sick for 3 days prior to presentation, but did not want to come to the emergency room. She thought it was just gas. Symptoms, however, worsened yesterday while she was at work and she sought help in the emergency room where she was diagnosed with acute diverticulitis. PAST MEDICAL HISTORY: Diverticular disease with multiple admissions to the hospital for this in the past. She has had colonoscopy, the last colonoscopy was 2 years ago. She also has a history of hypertension. FAMILY HISTORY: Noncontributory. SOCIAL HISTORY: She does not smoke or drink and works as a nurse in the hospital. REVIEW OF SYSTEMS: Essentially remarkable for nausea, vomiting and abdominal pain. PHYSICAL EXAMINATION: GENERAL: The patient is alert and oriented, appears to be still in some distress because of abdominal discomfort. VITAL SIGNS: Blood pressure 109/66, pulse of 57, respiratory rate 20 per minute. She is febrile. O2 sat is 93% on room air. SKIN: Shows fair turgor. HEENT: Pupils are equal and reactive to light and accommodation. Mouth shows fair hygiene with dry mucosa. LUNGS: Clear. HEART: Regular. No murmurs or gallop. ABDOMEN: Soft with left lower quadrant tenderness. No rebound. No organomegaly appreciated. GENITALIA AND RECTAL: Deferred. CENTRAL NERVOUS SYSTEM: Grossly intact. LABORATORY DATA: Remarkable for WBC of 5.4, hemoglobin 12.3, platelet count 186,000. Sodium 140, potassium 3.8, BUN of 13, creatinine 0.8, serum glucose 102. The CAT scan of the abdomen and pelvis is remarkable for sigmoid diverticulitis, hepatic steatosis, mild splenomegaly, incidentally noted sub cm nodule, left lower lobe. CT scan of the chest suggested for 12 months from now, interval thickening of distal esophagus with a small hiatal hernia. Further clinic correlation recommended. IMPRESSION: Acute diverticular disease (diverticulitis); hypertension, fairly controlled; pulmonary nodule, left lower lobe; mild splenomegaly; hepatic steatosis; possible esophageal hiatal hernia. PLAN: Intravenous hydration. Would start clear liquids as tolerated and analgesics for pain. Surgical and Gastroenterology evaluation already requested. Further therapy will depend on findings. Lyndon Hdz MD [facility] # [phone]
[2018-12-06] MEDS: metroNIDAZOLE 500mg/100ml NS 100 ML IVPB SCH ×3 (00:53→18:29)
[2018-12-06] MEDS: Lactated Ringer's 1,000 ML IV SCH ×2 (02:44→16:13)
--- NOTE | 2018-12-06 03:24 | CON ---
DATE: 12/05/2018 REFERRING PHYSICIAN: Lyndon Hdz MD REASON FOR CONSULTATION: Diverticular disease. HISTORY OF PRESENT ILLNESS: This is a 58-year-old female, well known to my office since her six episodes of diverticulitis for which now she has been asking pain control. The patient had a colonoscopy a couple years ago. This was discussed with Surgery. Pain is there but is improving. Tolerating liquids. No apparent distress. PAST MEDICAL HISTORY: As above. PAST SURGICAL HISTORY: As above. MEDICATIONS: Have been reviewed. REVIEW OF SYSTEMS: All other systems have been reviewed and negative apart from the HPI. PHYSICAL EXAMINATION: VITAL SIGNS: Here in the hospital, grossly unremarkable. GENERAL: This is a pleasant middle-aged female, lying in bed comfortably, in no apparent distress. HEENT: Head is normocephalic and atraumatic. Eyes, pupils are equally reactive to light bilaterally. No conjunctival pallor or icterus. NECK: Supple. Normal range of motion. No lymphadenopathy appreciated. LUNGS: Coarse breath sounds bilaterally. HEART: S1 and S2. Regular rate and rhythm. No murmurs appreciated. ABDOMEN: Soft. Some discomfort in left lower quadrant. No rebound. No guarding. RECTAL: Deferred. EXTREMITIES: Pulses felt bilaterally. SKIN: Warm, dry, and intact. NEUROLOGIC: Alert and oriented x3. LABORATORY DATA: Lab and radiology have been reviewed. WBC is normal at 5.4 and hemoglobin is stable. CAT scan shows sigmoid diverticulitis. ASSESSMENT AND PLAN: This is a 58-year-old with diverticulitis, . Recommend antibiotics and once possible elective surgery. Thank you for the consult. Emeka Jones MD/ PhD cc: Lyndon Hdz MD
[2018-12-06] MEDS: Piperacillin/Tazobact 3.375 GM in Sodium Chloride 0.9% 100 ML IVPB SCH ×4 (04:58→21:50)
--- NOTE | 2018-12-06 08:30 | CP.PCM.PN ---
Subjective - Date & Time of Evaluation Date of Evaluation: 12/06/18 Time of Evaluation: 08:26 - Subjective Subjective: Surgery: Dr. Quijano Patient with reduced pain from yesterday in the abdomen on the left side. Reports mild nausea today but had no vomiting. Denies f/c/cp. Objective - Vital Signs/Intake and Output Vital Signs (last 24 hours): Temp Pulse Resp BP Pulse Ox 98.2 F 59 L 19 130/78 94 L 12/06/18 07:40 12/06/18 07:40 12/06/18 07:40 12/06/18 07:40 12/06/18 07:40 - Medications Medications: Current Medications Acetaminophen (Tylenol 325mg Tab) 650 mg PO Q4 PRN PRN Reason: Pain, Mild (1-3) Last Admin: 12/05/18 09:28 Dose: 650 mg Acetaminophen (Tylenol 325mg Tab) 650 mg PO Q4 PRN PRN Reason: Fever >100.4 F Hydromorphone HCl (Dilaudid) 1 mg IVP Q4 PRN PRN Reason: Pain, moderate (4-7) Last Admin: 12/06/18 02:44 Dose: 1 mg Lactated Ringer's (Lactated Ringer's) 1,000 mls @ 125 mls/hr IV .Q8H CHARISSE Last Admin: 12/06/18 02:44 Dose: 125 mls/hr Piperacillin Sod/Tazobactam (Sod 3.375 gm/ Sodium Chloride) 100 mls @ 100 mls/hr IVPB Q6 CHARISSE; Protocol Last Admin: 12/06/18 04:58 Dose: 100 mls/hr Metronidazole (Flagyl 500mg/100ml Ns) 100 mls @ 100 mls/hr IVPB Q8 CHARISSE; Protocol Last Admin: 12/06/18 08:25 Dose: 100 mls/hr Ciprofloxacin (Cipro 400mg/200ml Dsw) 400 mg in 200 mls @ 200 mls/hr IVPB Q12 CHARISSE; Protocol Last Admin: 12/05/18 20:46 Dose: 200 mls/hr Ondansetron HCl (Zofran Inj) 4 mg IVP Q4 CHARISSE Last Admin: 12/06/18 04:59 Dose: 4 mg Pantoprazole Sodium (Protonix Inj) 40 mg IVP DAILY [facility] Last Admin: 12/06/18 08:24 Dose: 40 mg - Labs Labs: 12/05/18 06:10 12/05/18 06:10 - Constitutional Appears: Non-toxic, No Acute Distress - Head Exam Head Exam: ATRAUMATIC, NORMOCEPHALIC - Eye Exam Eye Exam: EOMI, Normal appearance - ENT Exam ENT Exam: Mucous Membranes Moist - Respiratory Exam Respiratory Exam: NORMAL BREATHING PATTERN. absent: Respiratory Distress - Cardiovascular Exam Cardiovascular Exam: REGULAR RHYTHM. absent: Tachycardia - GI/Abdominal Exam GI & Abdominal Exam: Soft, Tenderness (LLQ, nonperitoneal). absent: Distended, Firm, Guarding, Rigid - Rectal Exam Rectal Exam: Deferred - Extremities Exam Extremities Exam: Normal Capillary Refill. absent: Calf Tenderness - Neurological Exam Neurological Exam: Alert, Awake, Oriented x3 - Psychiatric Exam Psychiatric exam: Normal Affect, Normal Mood - Skin Skin Exam: Intact, Warm Assessment and Plan - Assessment and Plan (Free Text) Assessment: 58 y/o female w/ recurrent sigmoid diverticulitis Plan: -IVF -advance diet as tolerated -IV abx -antiemetics PRN -GI eval -will need resolution of diverticulitis and colonoscopy, if not one recent, prior to elective surgical intervention -will follow -further recs per attending
--- NOTE | 2018-12-06 09:52 | CP.PCM.PN ---
Subjective - Date & Time of Evaluation Date of Evaluation: 12/06/18 Time of Evaluation: 09:52 - Subjective Subjective: ABDOMINAL PAIN AND NAUSEA LESS BUT STILL PRESENT TOLERATING CLEAR LIQUID DIET NO DIARRHEA Objective - Vital Signs/Intake and Output Vital Signs (last 24 hours): Temp Pulse Resp BP Pulse Ox 98.2 F 59 L 19 130/78 94 L 12/06/18 07:40 12/06/18 07:40 12/06/18 07:40 12/06/18 07:40 12/06/18 07:40 - Medications Medications: Current Medications Acetaminophen (Tylenol 325mg Tab) 650 mg PO Q4 PRN PRN Reason: Pain, Mild (1-3) Last Admin: 12/05/18 09:28 Dose: 650 mg Acetaminophen (Tylenol 325mg Tab) 650 mg PO Q4 PRN PRN Reason: Fever >100.4 F Hydromorphone HCl (Dilaudid) 1 mg IVP Q4 PRN PRN Reason: Pain, moderate (4-7) Last Admin: 12/06/18 02:44 Dose: 1 mg Lactated Ringer's (Lactated Ringer's) 1,000 mls @ 125 mls/hr IV .Q8H CHARISSE Last Admin: 12/06/18 02:44 Dose: 125 mls/hr Piperacillin Sod/Tazobactam (Sod 3.375 gm/ Sodium Chloride) 100 mls @ 100 mls/hr IVPB Q6 CHARISSE; Protocol Last Admin: 12/06/18 09:46 Dose: 100 mls/hr Metronidazole (Flagyl 500mg/100ml Ns) 100 mls @ 100 mls/hr IVPB Q8 CHARISSE; Protocol Last Admin: 12/06/18 08:25 Dose: 100 mls/hr Ciprofloxacin (Cipro 400mg/200ml Dsw) 400 mg in 200 mls @ 200 mls/hr IVPB Q12 CHARISSE; Protocol Last Admin: 12/05/18 20:46 Dose: 200 mls/hr Ondansetron HCl (Zofran Inj) 4 mg IVP Q4 CHARISSE Last Admin: 12/06/18 09:46 Dose: 4 mg Pantoprazole Sodium (Protonix Inj) 40 mg IVP DAILY CHARISSE Last Admin: 12/06/18 08:24 Dose: 40 mg - Labs Labs: 12/05/18 06:10 12/05/18 06:10 - Constitutional Appears: No Acute Distress - Head Exam Head Exam: ATRAUMATIC, NORMAL INSPECTION, NORMOCEPHALIC - Eye Exam Eye Exam: EOMI, Normal appearance, PERRL Pupil Exam: NORMAL ACCOMODATION, PERRL - ENT Exam ENT Exam: Mucous Membranes Moist, Normal Exam - Neck Exam Neck Exam: Full ROM, Normal Inspection. absent: Lymphadenopathy - Respiratory Exam Respiratory Exam: Clear to Ausculation Bilateral, NORMAL BREATHING PATTERN - Cardiovascular Exam Cardiovascular Exam: REGULAR RHYTHM, +S1, +S2. absent: Murmur - GI/Abdominal Exam GI & Abdominal Exam: Soft, Tenderness, Normal Bowel Sounds Additional comments: MILD DIFFUSE LOWER QUADRANT TENDERNESS - Rectal Exam Rectal Exam: NORMAL INSPECTION - Extremities Exam Extremities Exam: Full ROM, Normal Capillary Refill, Normal Inspection. absent: Joint Swelling, Pedal Edema - Back Exam Back Exam: NORMAL INSPECTION - Neurological Exam Neurological Exam: Alert, Awake, CN II-XII Intact, Normal Gait, Oriented x3 - Psychiatric Exam Psychiatric exam: Normal Affect, Normal Mood - Skin Skin Exam: Dry, Intact, Normal Color, Warm Assessment and Plan - Assessment and Plan (Free Text) Assessment: ACUTE DIVERTICULITIS HTN Plan: SURGICAL OPTIONS DISCUSSED WITH PT BY GI AND SURGERY--SHE WILL CONSIDER IT[ ELECTIVE] WILL ADVANCE DIET TODAY CONTINUE IV ANTIBIOTICS/ANTIEMETICS AND ANALGESICS
[2018-12-06] MEDS: Ciprofloxacin 400mg/200ml D5W 400 MG/200 ML BAG IVPB SCH ×2 (11:04→20:39)
[2018-12-06 16:04] VITALS: RESP 18
[2018-12-06] MEDS: Oxycodone/Acetaminophen 5/325 mg Tab PO PRN ×2 (16:21→20:37)
[2018-12-06 23:49] VITALS: BP 117/71; PULSE 62; TEMP 98; O2SAT 95
[2018-12-07] MEDS: metroNIDAZOLE 500mg/100ml NS 100 ML IVPB SCH ×2 (00:41→09:27)
[2018-12-07] MEDS: Oxycodone/Acetaminophen 5/325 mg Tab PO PRN (02:48)
[2018-12-07] MEDS: Piperacillin/Tazobact 3.375 GM in Sodium Chloride 0.9% 100 ML IVPB SCH ×2 (04:41→09:30)
--- NOTE | 2018-12-07 07:51 | CP.PCM.PN ---
<Ange Lagunas - Last Filed: 12/07/18 08:49> Subjective - Date & Time of Evaluation Date of Evaluation: 12/07/18 Time of Evaluation: 06:40 - Subjective Subjective: Surgery progress note for Dr. Franco Pt seen and examined this AM. No adverse events overnight. Patient tolerated a full liquid diet with some non-bloody diarrhea, but no nausea, vomiting, or fevers, abdominal pain improving. Objective - Vital Signs/Intake and Output Vital Signs (last 24 hours): Temp Pulse Resp BP Pulse Ox 98.0 F 62 18 117/71 95 12/06/18 23:48 12/06/18 23:48 12/06/18 23:48 12/06/18 23:48 12/06/18 23:48 - Medications Medications: Current Medications Acetaminophen (Tylenol 325mg Tab) 650 mg PO Q4 PRN PRN Reason: Pain, Mild (1-3) Last Admin: 12/05/18 09:28 Dose: 650 mg Acetaminophen (Tylenol 325mg Tab) 650 mg PO Q4 PRN PRN Reason: Fever >100.4 F Hydromorphone HCl (Dilaudid) 0.5 mg IVP Q4 PRN PRN Reason: Pain, severe (8-10) Last Admin: 12/06/18 14:48 Dose: 0.5 mg Piperacillin Sod/Tazobactam (Sod 3.375 gm/ Sodium Chloride) 100 mls @ 100 mls/hr IVPB Q6 [facility]; Protocol Last Admin: 12/07/18 04:41 Dose: 100 mls/hr Metronidazole (Flagyl 500mg/100ml Ns) 100 mls @ 100 mls/hr IVPB Q8 [facility]; Protocol Last Admin: 12/07/18 00:41 Dose: 100 mls/hr Ciprofloxacin (Cipro 400mg/200ml Dsw) 400 mg in 200 mls @ 200 mls/hr IVPB Q12 [facility]; Protocol Last Admin: 12/06/18 20:39 Dose: 200 mls/hr Losartan Potassium (Cozaar) 25 mg PO DAILY [facility] Last Admin: 12/06/18 11:04 Dose: 25 mg Ondansetron HCl (Zofran Inj) 4 mg IVP Q4 [facility] Last Admin: 12/07/18 04:41 Dose: 4 mg Oxycodone/Acetaminophen (Percocet 5/325 Mg Tab) 1 tab PO Q4 PRN PRN Reason: Pain, moderate (4-7) Stop: 12/09/18 11:21 Last Admin: 12/07/18 02:48 Dose: 1 tab Pantoprazole Sodium (Protonix Inj) 40 mg IVP DAILY [facility] Last Admin: 12/06/18 08:24 Dose: 40 mg - Labs Labs: 12/05/18 06:10 12/05/18 06:10 - Constitutional Appears: Well, Non-toxic, No Acute Distress - Head Exam Head Exam: ATRAUMATIC, NORMOCEPHALIC - Eye Exam Eye Exam: Normal appearance. absent: Conjunctival injection, Scleral icterus - ENT Exam ENT Exam: Mucous Membranes Moist, Normal Oropharynx - Respiratory Exam Respiratory Exam: NORMAL BREATHING PATTERN. absent: Accessory Muscle Use, Respiratory Distress - Cardiovascular Exam Cardiovascular Exam: RRR - GI/Abdominal Exam GI & Abdominal Exam: Soft, Tenderness (LLQ/suprapubis). absent: Distended - Extremities Exam Extremities Exam: absent: Calf Tenderness, Pedal Edema, Tenderness - Neurological Exam Neurological Exam: Alert, Awake, Oriented x3 - Psychiatric Exam Psychiatric exam: Normal Affect, Normal Mood - Skin Skin Exam: Dry, Normal Color, Warm Assessment and Plan - Assessment and Plan (Free Text) Assessment: 58F with acute diverticulitis, improving Plan: Continue antibiotics per primary Advance diet as tolerated PRN pain and nausea medication--attempt to transfer to PO pain medication Encourage ambulation, SCD's F/U GI recs--recommend colonoscopy in 6 weeks after acute diverticulitis resolution Follow up with Dr. Franco as outpatient for possible surgical planning Will continue to follow as inpatient Discussed with Dr. Franco, further recs per him Ange Lagunas PGY2 <Luis Alberto Franco - Last Filed: 12/07/18 11:10> Subjective - Date & Time of Evaluation Time of Evaluation: 11:00 - Subjective Subjective: Patient was seen and examined at the bedside. Agree with resident's note above. Objective - Vital Signs/Intake and Output Vital Signs (last 24 hours): Temp Pulse Resp BP Pulse Ox 98.0 F 62 18 117/71 95 12/06/18 23:48 12/07/18 09:32 12/06/18 23:48 12/07/18 09:32 12/06/18 23:48 - Medications Medications: Current Medications Acetaminophen (Tylenol 325mg Tab) 650 mg PO Q4 PRN PRN Reason: Pain, Mild (1-3) Last Admin: 12/05/18 09:28 Dose: 650 mg Acetaminophen (Tylenol 325mg Tab) 650 mg PO Q4 PRN PRN Reason: Fever >100.4 F Piperacillin Sod/Tazobactam (Sod 3.375 gm/ Sodium Chloride) 100 mls @ 100 mls/hr IVPB Q6 [facility]; Protocol Last Admin: 12/07/18 09:30 Dose: 100 mls/hr Metronidazole (Flagyl 500mg/100ml Ns) 100 mls @ 100 mls/hr IVPB Q8 [facility]; Protocol Last Admin: 12/07/18 09:27 Dose: 100 mls/hr Ciprofloxacin (Cipro 400mg/200ml Dsw) 400 mg in 200 mls @ 200 mls/hr IVPB Q12 [facility]; Protocol Last Admin: 12/07/18 09:31 Dose: 200 mls/hr Losartan Potassium (Cozaar) 25 mg PO DAILY [facility] Last Admin: 12/07/18 09:32 Dose: 25 mg Ondansetron HCl (Zofran Inj) 4 mg IVP Q4 [facility] Last Admin: 12/07/18 09:41 Dose: 4 mg Oxycodone/Acetaminophen (Percocet 5/325 Mg Tab) 1 tab PO Q4 PRN PRN Reason: Pain, moderate (4-7) Stop: 12/09/18 11:21 Last Admin: 12/07/18 02:48 Dose: 1 tab Oxycodone/Acetaminophen (Percocet 5/325 Mg Tab) 2 tab PO Q4 PRN PRN Reason: Pain, severe (8-10) Stop: 12/10/18 08:17 Pantoprazole Sodium (Protonix Inj) 40 mg IVP DAILY [facility] Last Admin: 12/07/18 09:32 Dose: 40 mg - Labs Labs: 12/05/18 06:10 12/05/18 06:10 - GI/Abdominal Exam Additional comments: soft, mildly tender in the LLQ, ND, BS+, no rebound, no guarding
[2018-12-07] MEDS ORDERED: Oxycodone/Acetaminophen 5/325 mg Tab PO PRN (08:16)
--- NOTE | 2018-12-07 09:01 | CP.PCM.PN ---
Subjective - Date & Time of Evaluation Date of Evaluation: 12/06/18 Time of Evaluation: 14:00 - Subjective Subjective: no overnight events Objective - Vital Signs/Intake and Output Vital Signs (last 24 hours): Temp Pulse Resp BP Pulse Ox 98.0 F 62 18 117/71 95 12/06/18 23:48 12/06/18 23:48 12/06/18 23:48 12/06/18 23:48 12/06/18 23:48 - Medications Medications: Current Medications Acetaminophen (Tylenol 325mg Tab) 650 mg PO Q4 PRN PRN Reason: Pain, Mild (1-3) Last Admin: 12/05/18 09:28 Dose: 650 mg Acetaminophen (Tylenol 325mg Tab) 650 mg PO Q4 PRN PRN Reason: Fever >100.4 F Piperacillin Sod/Tazobactam (Sod 3.375 gm/ Sodium Chloride) 100 mls @ 100 mls/hr IVPB Q6 [facility]; Protocol Last Admin: 12/07/18 04:41 Dose: 100 mls/hr Metronidazole (Flagyl 500mg/100ml Ns) 100 mls @ 100 mls/hr IVPB Q8 [facility]; Protocol Last Admin: 12/07/18 00:41 Dose: 100 mls/hr Ciprofloxacin (Cipro 400mg/200ml Dsw) 400 mg in 200 mls @ 200 mls/hr IVPB Q12 [facility]; Protocol Last Admin: 12/06/18 20:39 Dose: 200 mls/hr Losartan Potassium (Cozaar) 25 mg PO DAILY [facility] Last Admin: 12/06/18 11:04 Dose: 25 mg Ondansetron HCl (Zofran Inj) 4 mg IVP Q4 [facility] Last Admin: 12/07/18 04:41 Dose: 4 mg Oxycodone/Acetaminophen (Percocet 5/325 Mg Tab) 1 tab PO Q4 PRN PRN Reason: Pain, moderate (4-7) Stop: 12/09/18 11:21 Last Admin: 12/07/18 02:48 Dose: 1 tab Oxycodone/Acetaminophen (Percocet 5/325 Mg Tab) 2 tab PO Q4 PRN PRN Reason: Pain, severe (8-10) Stop: 12/10/18 08:17 Pantoprazole Sodium (Protonix Inj) 40 mg IVP DAILY [facility] Last Admin: 12/06/18 08:24 Dose: 40 mg - Labs Labs: 12/05/18 06:10 12/05/18 06:10 - Neck Exam Neck Exam: Normal Inspection - Respiratory Exam Respiratory Exam: Clear to Ausculation Bilateral, NORMAL BREATHING PATTERN - Cardiovascular Exam Cardiovascular Exam: REGULAR RHYTHM - GI/Abdominal Exam GI & Abdominal Exam: Soft, Tenderness, Normal Bowel Sounds Assessment and Plan - Assessment and Plan (Free Text) Assessment: 58 yo female with diverticulitis abx surgical input
--- NOTE | 2018-12-07 09:05 | CP.PCM.DIS ---
Provider - Provider Date of Admission: 12/04/18 17:36 Attending physician: Lyndon Hdz MD Consults: 12/04/18 17:06 Surgery [General Surgery Consult] Stat Comment: Consulting Provider: Luis Alberto Franco Consulting Physician: Luis Alberto Franco Reason for Consult: diverticulitis, worsened abd pain 12/04/18 17:39 Gastroenterology Consult Stat Comment: Consulting Provider: Emeka Jones Consulting Physician: Emeka Jones Reason for Consult: Diverticulitis Time Spent in preparation of Discharge (in minutes): 30 Diagnosis - Discharge Diagnosis (1) Diverticulitis Status: Acute Priority: High Comment: ABDOMINAL PAIN RESOLVED. NAUSEA AND VOMITING RESOLVED. TOLERATED REGULAR DIET. WILL D/C HOME AND FOLLOW UP WITH GI AND SURGERY. ELECTIVE SURGERY PLANNED (2) Abdominal pain Status: Resolved (3) Acute diverticulitis Status: Acute (4) Hypertension Status: Chronic Comment: STABLE Hospital Course - Lab Results Lab Results: Micro Results 12/04/18 18:15 Blood Blood Culture - Preliminary NO GROWTH AFTER 48 HOURS 12/05/18 10:18 Blood Blood Culture - Preliminary NO GROWTH AFTER 24 HOURS Most Recent Lab Values WBC 5.4 K/uL (4.8-10.8) 12/05/18 06:10 RBC 4.40 Mil/uL (3.80-5.20) 12/05/18 06:10 Hgb 12.3 g/dL (12.0-16.0) 12/05/18 06:10 Hct 36.1 % (34.0-47.0) 12/05/18 06:10 MCV 82.1 fl (81.0-99.0) 12/05/18 06:10 MCH 28.0 pg (27.0-31.0) 12/05/18 06:10 MCHC 34.1 g/dL (33.0-37.0) 12/05/18 06:10 RDW 13.0 % (11.5-14.5) 12/05/18 06:10 Plt Count 186 K/uL (130-400) 12/05/18 06:10 MPV 8.5 fl (7.2-11.7) 12/05/18 06:10 Neut % (Auto) 54.9 % (50.0-75.0) 12/05/18 06:10 Lymph % (Auto) 31.8 % (20.0-40.0) 12/05/18 06:10 [place] % (Auto) 8.2 % (0.0-10.0) 12/05/18 06:10 Eos % (Auto) 4.4 % (0.0-4.0) H 12/05/18 06:10 Baso % (Auto) 0.7 % (0.0-2.0) 12/05/18 06:10 Neut # (Auto) 2.9 K/uL (1.8-7.0) 12/05/18 06:10 Lymph # (Auto) 1.7 K/uL (1.0-4.3) 12/05/18 06:10 [place] # (Auto) 0.4 K/uL (0.0-0.8) 12/05/18 06:10 Eos # (Auto) 0.2 K/uL (0.0-0.7) 12/05/18 06:10 Baso # (Auto) 0.0 K/uL (0.0-0.2) 12/05/18 06:10 pO2 27 mm/Hg (30-55) L 12/04/18 12:10 VBG pH 7.37 (7.32-7.43) 12/04/18 12:10 VBG pCO2 50 mmHg (40-60) 12/04/18 12:10 VBG HCO3 25.7 mmol/L 12/04/18 12:10 VBG Total CO2 30.4 mmol/L (22-28) H 12/04/18 12:10 VBG O2 Sat (Calc) 56.7 % (40-65) 12/04/18 12:10 VBG Base Excess 2.7 mmol/L (0.0-2.0) H 12/04/18 12:10 VBG Potassium 3.8 mmol/L (3.6-5.2) 12/04/18 12:10 Sodium 140.0 mmol/L (132-148) 12/04/18 12:10 Chloride 109.0 mmol/L (98-107) H 12/04/18 12:10 Glucose 91 mg/dL (65-105) 12/04/18 12:10 Lactate 0.8 mmol/L (0.7-2.1) 12/04/18 12:10 FiO2 21.0 % 12/04/18 12:10 Sodium 140 mmol/l (132-148) 12/05/18 06:10 Potassium 3.8 MMOL/L (3.6-5.0) 12/05/18 06:10 Chloride 103 mmol/L (98-107) 12/05/18 06:10 Carbon Dioxide 24 mmol/L (22-30) 12/05/18 06:10 Anion Gap 17 (10-20) 12/05/18 06:10 BUN 13 mg/dl (7-17) 12/05/18 06:10 Creatinine 0.8 mg/dl (0.7-1.2) 12/05/18 06:10 Est GFR ( Amer) > 60 12/05/18 06:10 Est GFR (Non-Af Amer) > 60 12/05/18 06:10 Random Glucose 102 mg/dL (65-105) 12/05/18 06:10 Calcium 8.8 mg/dL (8.4-10.2) 12/05/18 06:10 Total Bilirubin 0.6 mg/dl (0.2-1.3) 12/04/18 12:02 AST 25 U/L (14-36) 12/04/18 12:02 ALT 22 U/L (9-52) 12/04/18 12:02 Alkaline Phosphatase 94 U/L (38-126) 12/04/18 12:02 Total Protein 7.4 G/DL (6.3-8.2) 12/04/18 12:02 Albumin 4.0 g/dL (3.5-5.0) 12/04/18 12:02 Globulin 3.4 gm/dL (2.2-3.9) 12/04/18 12:02 Albumin/Globulin Ratio 1.2 (1.0-2.1) 12/04/18 12:02 Venous Blood Potassium 3.8 mmol/L (3.6-5.2) 12/04/18 12:10 Urine Color Yellow (YELLOW) 12/04/18 12:35 Urine Clarity Slighty-cloudy (Clear) 12/04/18 12:35 Urine pH 6.0 (5.0-8.0) 12/04/18 12:35 Ur Specific [place] 1.021 (1.003-1.030) 12/04/18 12:35 Urine Protein Negative mg/dL (NEGATIVE) 12/04/18 12:35 Urine Glucose (UA) Neg mg/dL (NEGATIVE) 12/04/18 12:35 Urine Ketones Negative mg/dL (NEGATIVE) 12/04/18 12:35 Urine Blood Moderate (NEGATIVE) 12/04/18 12:35 Urine Nitrate Negative (NEGATIVE) 12/04/18 12:35 Urine Bilirubin Negative (NEGATIVE) 12/04/18 12:35 Urine Urobilinogen 0.2-1.0 mg/dL (0.2-1.0) 12/04/18 12:35 Ur Leukocyte Esterase Neg [place]/uL (Negative) 12/04/18 12:35 Urine RBC (Auto) 1 /hpf (0-3) 12/04/18 12:35 Urine Microscopic WBC 2 /hpf (0-5) 12/04/18 12:35 Ur Squamous Epith Cells 1 /hpf (0-5) 12/04/18 12:35 Discharge Exam - Head Exam Head Exam: ATRAUMATIC, NORMOCEPHALIC - Eye Exam Eye Exam: EOMI, Normal appearance, PERRL Pupil Exam: NORMAL ACCOMODATION, PERRL - GI/Abdominal Exam GI & Abdominal Exam: Normal Bowel Sounds - Rectal Exam Rectal Exam: NORMAL INSPECTION - Neurological Exam Neurological exam: Alert, CN II-XII Intact, Normal Gait, Oriented x3, Reflexes Normal - Psychiatric Exam Psychiatric exam: Normal Affect, Normal Mood - Skin Skin Exam: Dry, Intact, Normal Color, Warm Discharge Plan - Follow Up Plan Condition: FAIR Disposition: HOME/ ROUTINE Instructions: Low Fiber Diet, Diverticulitis (DC) Additional Instructions: follow up with your primary MD and GI MD 1 week Referrals: Luis Alberto Franco MD [Staff Provider] - Emeka Jones MD, PhD [Staff Provider] - Lyndon Hdz MD [Family Provider] -
--- NOTE | 2018-12-07 09:14 | CP.PCM.PN ---
Subjective - Date & Time of Evaluation Date of Evaluation: 12/07/18 Time of Evaluation: 09:14 - Subjective Subjective: no overnight events Objective - Vital Signs/Intake and Output Vital Signs (last 24 hours): Temp Pulse Resp BP Pulse Ox 98.0 F 62 18 117/71 95 12/06/18 23:48 12/06/18 23:48 12/06/18 23:48 12/06/18 23:48 12/06/18 23:48 - Medications Medications: Current Medications Acetaminophen (Tylenol 325mg Tab) 650 mg PO Q4 PRN PRN Reason: Pain, Mild (1-3) Last Admin: 12/05/18 09:28 Dose: 650 mg Acetaminophen (Tylenol 325mg Tab) 650 mg PO Q4 PRN PRN Reason: Fever >100.4 F Piperacillin Sod/Tazobactam (Sod 3.375 gm/ Sodium Chloride) 100 mls @ 100 mls/hr IVPB Q6 [facility]; Protocol Last Admin: 12/07/18 04:41 Dose: 100 mls/hr Metronidazole (Flagyl 500mg/100ml Ns) 100 mls @ 100 mls/hr IVPB Q8 [facility]; Protocol Last Admin: 12/07/18 00:41 Dose: 100 mls/hr Ciprofloxacin (Cipro 400mg/200ml Dsw) 400 mg in 200 mls @ 200 mls/hr IVPB Q12 [facility]; Protocol Last Admin: 12/06/18 20:39 Dose: 200 mls/hr Losartan Potassium (Cozaar) 25 mg PO DAILY [facility] Last Admin: 12/06/18 11:04 Dose: 25 mg Ondansetron HCl (Zofran Inj) 4 mg IVP Q4 [facility] Last Admin: 12/07/18 04:41 Dose: 4 mg Oxycodone/Acetaminophen (Percocet 5/325 Mg Tab) 1 tab PO Q4 PRN PRN Reason: Pain, moderate (4-7) Stop: 12/09/18 11:21 Last Admin: 12/07/18 02:48 Dose: 1 tab Oxycodone/Acetaminophen (Percocet 5/325 Mg Tab) 2 tab PO Q4 PRN PRN Reason: Pain, severe (8-10) Stop: 12/10/18 08:17 Pantoprazole Sodium (Protonix Inj) 40 mg IVP DAILY [facility] Last Admin: 12/06/18 08:24 Dose: 40 mg - Labs Labs: 12/05/18 06:10 12/05/18 06:10 - Neck Exam Neck Exam: Normal Inspection - Respiratory Exam Respiratory Exam: Clear to Ausculation Bilateral, NORMAL BREATHING PATTERN - Cardiovascular Exam Cardiovascular Exam: REGULAR RHYTHM - GI/Abdominal Exam GI & Abdominal Exam: Soft, Normal Bowel Sounds Assessment and Plan - Assessment and Plan (Free Text) Assessment: 58 yo female with recurrent diverticulitis abx dc planning elective surgery
[2018-12-07] MEDS: Ciprofloxacin 400mg/200ml D5W 400 MG/200 ML BAG IVPB SCH (09:31)
== END 2018-12-07 13:47 | disposition home or self-care (01) | DRG 392 ==
LOC: H.ER 10:08 → H.ERHOLD 17:36 → H.MEDSURG1 18:35
PROVIDERS: ADMIT Internal Medicine Pulmonary Disease; ATTEND Internal Medicine Pulmonary Disease
DX: K57.32 Diverticulitis of large intestine without perforation or abscess without bleeding (principal); R91.1 Solitary pulmonary nodule; K76.0 Fatty (change of) liver, not elsewhere classified; R16.1 Splenomegaly, not elsewhere classified; I10 Essential (primary) hypertension; F41.9 Anxiety disorder, unspecified; Z90.49 Acquired absence of other specified parts of digestive tract; Z90.710 Acquired absence of both cervix and uterus; Z88.7 Allergy status to serum and vaccine